=== PATIENT | female | born 2000 | race Caucasian/White ===

== ENCOUNTER 2023-03-18 11:43 | Outpatient (CLI) | payer MEDICAID, SELFPAY | END 2023-03-18 11:44 | disposition home or self-care (01) | PROVIDERS: PCP Family Medicine; Visit Provider Family Medicine | DX: R53.83 Other fatigue (principal); N92.1 Excessive and frequent menstruation with irregular cycle | CPT/HCPCS: 80053; 84443; 84703 ==

== ENCOUNTER 2023-03-23 13:10 | Outpatient (CLI) | payer MEDICAID, SELFPAY | END 2023-03-23 13:11 | disposition home or self-care (01) | LOC: NFLDREF 03-24 05:20 | PROVIDERS: PCP Family Medicine; Referring Provider Family Medicine; Visit Provider Registered Nurse | DX: Z11.3 Encounter for screening for infections with a predominantly sexual mode of transmission (principal) | CPT/HCPCS: 87491; 87591 ==

== ENCOUNTER 2024-04-24 07:58 | Emergency (ER) | payer SELFPAY ==
[2024-04-24 08:16] VITALS: BP 116/87; PULSE 89; RESP 20; TEMP 36.5; O2SAT 100; BMI 37.8
--- NOTE | 2024-04-24 08:59 | ED.BACK ---
HPI - Back Pain/Injury General Chief Complaint: Back Injury/Pain Stated Complaint: back pain/vomiting Time Seen by Provider: 04/24/24 08:20 History of Present Illness HPI Narrative: This 24-year-old female comes in complaining of diffuse low back pain that began a couple days ago. She does not report any injury event or strenuous activity to bring this on. She states that there is no pain radiating down either leg. Related Data Home Medications ?Medication ?Instructions ?Recorded ?Confirmed THC gummies PO PRN 03/18/23 03/23/23 dextroamphetamine-amphetamine 20 1 tab PO DAILY 04/24/24 04/24/24 mg tablet Previous Rx's ?Medication ?Instructions ?Recorded ondansetron 4 mg disintegrating 4 mg PO Q8H PRN nausea and 05/26/23 tablet vomiting #30 tabs cyclobenzaprine 10 mg tablet 10 mg PO TID #15 tabs 04/24/24 ketorolac 10 mg tablet 10 mg PO Q8H 5 days #15 tabs 04/24/24 Allergies Allergy/AdvReac Type Severity Reaction Status Date / Time aripiprazole (From Abilify) AdvReac worse Verified 04/24/24 08:29 depression sertraline (From Zoloft) AdvReac anger Verified 04/24/24 08:29 Review of Systems Status of ROS: Reports: 10 or more systems reviewed and unremarkable except as noted in History and below Narrative: Constitutional: No fevers, no weight gain or loss. Eyes: No discharge. No vision changes. HENT: No congestion, no sore throat, no ear pain. Cardiovascular: No chest pain, no palpitations. Respiratory: No shortness of breath, no wheezes, no cough. Gastrointestinal: No abdominal pain, no vomiting, no diarrhea. Genitourinary: No dysuria, no hematuria. Musculoskeletal: Normal range of motion. Diffuse pain across the low back. Skin: No rashes, no pruritis. Neurological: No dizziness, weakness, sensory change, speech change. Endo/Heme/Allergies: No bruising or bleeding. No polydipsia. Pysch: no suicidality, no anxiety, no insomnia. All other systems reviewed and are negative. [facility] Medical History (Updated 04/24/24 @ 09:02 by Andres Mckeon MD) Overweight ?E66.3 - Overweight (ICD-10) HSV-1 infection ?B00.9 - Herpesviral infection, unspecified (ICD-10) History of chlamydia ?Z86.19 - Personal history of other infectious and parasitic diseases (ICD-10) History of substance abuse ?F19.11 - Other psychoactive substance abuse, in remission (ICD-10) Anxiety ?F41.9 - Anxiety disorder, unspecified (ICD-10) GERD (gastroesophageal reflux disease) ?K21.9 - Gastro-esophageal reflux disease without esophagitis (ICD-10) Insomnia ?G47.00 - Insomnia, unspecified (ICD-10) History of seizure ?Z87.898 - Personal history of other specified conditions (ICD-10) Acne ?L70.9 - Acne, unspecified (ICD-10) Migraine without aura ?G43.009 - Migraine without aura, not intractable, without status migrainosus (ICD-10) History of abnormal cervical Pap smear ?Z87.42 - Personal history of other diseases of the female genital tract (ICD-10) PTSD (post-traumatic stress disorder) ?F43.10 - Post-traumatic stress disorder, unspecified (ICD-10) Depression ?F32.A - Depression, unspecified (ICD-10) Surgical History (Updated 04/20/23 @ 06:48 by Kaela Cottrell MD) Encounter for IUD insertion (03/2023) ?Z30.430 - Encounter for insertion of intrauterine contraceptive device (ICD-10) Hx of tympanostomy tubes (1998) ?Z98.890 - Other specified postprocedural states (ICD-10) History of appendectomy (2007) ?Z90.49 - Acquired absence of other specified parts of digestive tract (ICD-10) History of tonsillectomy (1999) ?Z90.89 - Acquired absence of other organs (ICD-10) Family History Mother Bipolar disorder COPD (chronic obstructive pulmonary disease) Diabetes Myocardial infarction, Onset Age: 43 Stroke, Onset Age: 45 Sister Bipolar disorder Family history of drug addiction Father CHF (congestive heart failure) COPD (chronic obstructive pulmonary disease) Diabetes Bipolar disorder Other Breast cancer Social History Narrative: , 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 Lives in [place] 10 year-old son lives with her parents in [place]. Does not smoke cigarettes never did Alcohol use is 7 shots in 1 day about once a month Does not exercise History of cocaine use resolved since 2014, history of alcohol use abuse resolved since 2014 What is your current living situation?: I presently have a place to live Problems where you live: no known problems In the past 12 months, utilities in danger of being shut off: no In past 12 months, lack of transportation kept you from medical appts, meetings, work, or getting things needed for daily living: no In the past 12 mos, have been you worried that your food would run out before you had money to buy more?: never true In the past 12 mos, the food you bought just didn't last and you didn't have money to buy more?: never true How often does anyone, including family, friends and others, physically hurt you: never How often does anyone, including family, friends and others, insult or talk down to you: never How often does anyone, including family, friends and others, threaten you with harm: never How often does anyone, including family, friends and others, scream or curse at you: never Exam Narrative: Exam Narrative: Constitutional: Well-developed, well-nourished, no acute distress. HEENT: Normocephalic, atraumatic. Neck: Normal range of motion. Nontender. Supple. Heart: Regular. No murmurs. Normal rate. Intact distal pulses. Lungs: Clear to auscultation. No chest discomfort. No wheezes, rhonchi, or rales. Abdomen: Normal bowel sounds. Nontender. No rebound tenderness. Genitalia: Deferred. Back: No midline tenderness. Normal range of motion. Diffuse pain across the low back. No radiating pain. Extremities: Normal range of motion. No injury. Skin: Intact. No rash. Warm. No erythema or pallor. Neurologic: No altered sensation. No weakness. Alert and oriented. Psychiatric: No suicidality. No anxiety or depression. No insomnia. Nursing notes and vitals signs are reviewed. Const: Vital Signs, click to edit/add: Vital Signs - 24 hr 04/24/24 08:16 Temperature 97.7 F Pulse Rate [Pulse Oximeter] 89 Respiratory Rate 20 Blood Pressure [Ri ght Upper Arm] 116/87 Pulse Oximetry 100 Oxygen Delivery Me thod Room Air Course Vital Signs Vital signs: Initial Vital Signs Temperature 97.7 F 04/24/24 08:16 Temperature Source Temporal Artery Scan 04/24/24 08:16 Pulse Rate 89 04/24/24 08:16 Respiratory Rate 20 04/24/24 08:16 Blood Pressure 116/87 04/24/24 08:16 Blood Pressure Mean 96 04/24/24 08:16 Pulse Oximetry 100 04/24/24 08:16 Oxygen Delivery Method Room Air 04/24/24 08:16 Vital Signs Temperature 97.7 F 04/24/24 08:16 Pulse Rate 89 04/24/24 08:16 Respiratory Rate 20 04/24/24 08:16 Blood Pressure 116/87 04/24/24 08:16 Pulse Oximetry 100 04/24/24 08:16 Oxygen Delivery Method Room Air 04/24/24 08:16 Temperature 97.7 F 04/24/24 08:16 Pulse Rate 89 04/24/24 08:16 Respiratory Rate 20 04/24/24 08:16 Blood Pressure 116/87 04/24/24 08:16 Pulse Oximetry 100 04/24/24 08:16 Oxygen Delivery Method Room Air 04/24/24 08:16 MDM - Back Pain/Injury MDM Narrative Medical decision making narrative: This patient comes in reporting low back pain. She states that she went to work and felt like it was too painful to continue working. She is requesting a note regarding her work. Her exam is normal and she has not had any recent strenuous activity or injury event that mandates imaging at this time. The patient received prescriptions for Toradol and Flexeril. I encouraged gentle stretching and increased activity as tolerated. Discharge Plan Discharge Clinical Impression: Strain of lumbar region Patient Disposition: Home, Self-Care Condition: Stable Additional Instructions: Take medication as needed and indicated. Gentle stretching is encouraged an increase activity as tolerated. Follow up with MD return if worsening. Prescriptions: New cyclobenzaprine 10 mg tablet 10 mg PO TID Qty: 15 0RF ketorolac 10 mg tablet 10 mg PO Q8H 5 Days Qty: 15 0RF No Action THC gummies PO PRN dextroamphetamine-amphetamine 20 mg tablet 1 tab PO DAILY ondansetron 4 mg tablet,disintegrating 4 mg PO Q8H PRN (Reason: nausea and vomiting) Qty: 30 0RF Follow Up/Referrals: Kaela Cottrell MD [Primary Care Provider] - Stand Alone Forms: [employer] Info Instructions
== END 2024-04-24 09:09 | disposition home or self-care (01) ==
LOC: ED 09:05
PROVIDERS: Emergency Provider Emergency Medicine Emergency Medical Services; PCP Family Medicine
DX: S39.012A Strain of muscle, fascia and tendon of lower back, initial encounter (principal)
CPT/HCPCS: 99283; 99284

== ENCOUNTER 2025-02-06 08:20 | Outpatient (CLI) | payer MEDICAID, SELFPAY | END 2025-02-06 08:21 | disposition home or self-care (01) | LOC: LKVREF 08:23 | PROVIDERS: PCP Family Medicine; Visit Provider Obstetrics & Gynecology | DX: N39.0 Urinary tract infection, site not specified (principal) | CPT/HCPCS: 87086 ==

== ENCOUNTER 2025-02-09 16:03 | Emergency (ER) | payer MEDICAID, SELFPAY ==
--- OUTSIDE RECORDS SUMMARY | 2024-12-26 14:43 | XMS_ITS | Encounter Summary ---
Author Organization [facility] Address [address] [place] [address] Care Team Providers Care Car Pre Cooler Name Role Phone Elsewhere, Pcp Primary Care Provider Unavailabl e Reason for Visit * Reason Comments Headache Patient presents wit h complaints of headache at work which started yesterday. She checked her blood pressure and noted it to be elevated. She also states she vomited once. She states she used to have migraine medications but I haven't gotten it filled. I probably should. She denies fevers. Encounter Details Date Type Department Care Team (Late st Contact Info) Description 12/26/2024 2:43 PM CDT - 12/26/2024 3:49 PM CDT Emergency [facility] [address] [place] [address] [phone] Michelle Esteban, SUNIL, C.N.P. [address] [place] [address] [phone] Headache Unspecified [R51.9] (Primary Dx) Discharge Disposition: Home or Self Care Social History Tobacco Use Types Packs/Day Years Used Date Smoking Tobacco: Never Smokeless Tobacco: Never Alcohol Use Standard Drinks/Week Comments Not Currently 0 (1 standard drink = 0.6 oz pur e alcohol) Rarely Comments Unknown Sex and Gender Information Value Date Recorded Sex Assigned at Not on file Legal Sex Female 6:45 PM CDT Gender Identity Not on file Sexual Orientation Not on file documented as of this encounter Last Filed Vital Signs Vital Sign Reading Time Taken Comments Blood Pressure 106/79 12/26/2024 2:03 PM CDT Pulse 80 12/26/2024 1:58 PM CDT Temperature 36.4 C (97.5 F) 12/26/2024 1:58 PM CDT Respiratory Rate 20 12/26/2024 1:58 PM CDT Oxygen Saturation 100% 12/26/2024 1:58 PM CDT Inhaled Oxygen Concentration - - Weight 110 kg (242 lb 3.2 oz) 12/26/2024 1:56 PM CDT Height 165.1 cm (5' 5) 12/26/2024 1:56 PM CDT Body Mass Index 40.3 12/26/2024 1:56 PM CDT documented in this encounter Discharge Instructions * Discharge Instructions* Michelle Esteban APRN, C.N.P. - 12/26/2024 3:20 PM CDT Rest, remain well hydrated. Low heating pad to upper shoulder/back to help relax back muscles. Which then will release upper back tension. Small frequent meals, protein sources, like cheese and peanut butter. Follow up with primary care provider at [facility] when get insurance for regular health maintenanceexams and followup of headaches. * Attachments The following attachments cannot be sent through Care Everywhere. * Chronic Migraine Headache (Latvian) documented in this encounter Medications at Time of Discharge acetaminophen (TYLENOL) 500 mg tablet Take 1,000 mg by mouth every 6 (six) hours as needed for pain. ARIPiprazole (ABILIFY) 5 mg tablet Take 2.5 mg by mouth daily. cloNIDine (CATAPRES) 0.2 mg tablet Take 0.2 mg by mouth at bedtime as needed. for sleep 11/27/2022 cyclobenzaprine (FlexeriL) 5 mg tablet Take 5 mg by mouth at bedtime as needed for muscle spasms. dextroamphetamine -amphetamine (AdderalL) 30 mg tablet Take 30 mg by mouth daily. escitalopram (Lexapro) 20 mg tablet Take 20 mg by mouth daily. ibuprofen (ADVIL,MOTRIN) 200 mg capsule Take 800 mg by mouth every 6 (six) hours as needed for pain. Lo-Zumandimine, 28, 3-0.02 mg per tablet Take 1 tablet by mouth daily. 02/27/2023 ondansetron (Zofran) 4 mg tablet Take 4 mg by mouth every 8 (eight) hours as needed for nausea or vomiting. traMADoL (Ultram) 50 mg tablet Take 1 tablet by mouth every 6 (six) hours as needed for pain. 06/14/2024 01/30/2025 documented as of this encounter Progress Notes * Michelle Esteban APRN, C.N.P. - 12/26/2024 3:36 PM CDT The patient verbally consented to an audio recording of their visit to assist with the completion of documentation. SUBJECTIVE CHIEF COMPLAINT/REASON FOR VISIT Headache (Patient presents with complaints of headache at work which started yesterday. She checkedher blood pressure and noted it to be elevated. She also states she vomited once. She states she used to have migraine medications but I haven't gotten it filled. I probably should. She denies fevers. ) HISTORY OF PRESENT ILLNESS History of Present Illness Loyda Ireland is a 24 year old female who presents with a severe migraine and associated vomiting. She is experiencing a severe migraine today, with headache pain rated as 8 out of 10, leading to vomiting after lunch. During the headache, her blood pressure was elevated at 167/112, although she does not have a history of hypertension and usually has low blood pressure. 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 She has a history of migraines and previously used Fioricet during , but discontinued it due to loss of insurance. Currently, she uses Tylenol and Excedrin Migraine, but these have been ineffective for her last two migraines, necessitating emergency room visits where she received Toradol injections, which provided relief. She has tried sumatriptan in the past without success and is not currently on any maintenance migraine medication. In addition to the headache, she reports lower right abdominal pain that started yesterday. No fever, chills, blurred or double vision, fainting, constipation, diarrhea, or pain during urination. Herlast bowel movement was the previous night, and her last menstrual period was over a month ago, with irregular cycles. She has taken a home test which was negative. 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 She recently became eligible for health insurance through her job, which she started on January 22, and has not seen her primary care provider in a while due to scheduling difficulties. REVIEW OF SYSTEMS Constitutional: Negative for chills. HENT: Negative. Gastrointestinal: Positive for vomiting (One time today.). Genitourinary: Negative. Skin: Negative. Neurological: Positive for headaches (Generalized.). Negative for syncope, speech difficulty and weakness. Psychiatric/Behavioral: Negative. OBJECTIVE Initial Vitals Temperature 12/26/24 1358 36.4 ??C Pulse Rate 12/26/24 1358 80 Heart Rate -- Resp Rate 12/26/24 1358 20 Blood Pressure 12/26/24 1403 106/79 SpO2 12/26/24 1358 100 % Pain Score 12/26/24 1358 9 PHYSICAL EXAMINATION Physical Exam VITALS: BP- 106/79 ABDOMEN: Normal bowel sounds. NEUROLOGICAL: Neurological exam normal, clear speech, well-balanced gait. Constitutional: Nursing note and vitals reviewed. She appears not lethargic. No distress. HENT: Head: Normocephalic. Mouth/Throat: Oropharynx is clear and moist. Mucous membranes are moist. Eyes: Pupils are equal, round, and reactive to light. Cardiovascular: Normal rate. Pulmonary/Chest: Breath sounds normal. Abdominal: Normal appearance and bowel sounds are normal. There is no hepatosplenomegaly. There is abdominal tenderness in the right lower quadrant. There is no rigidity, no rebound, no guarding, no CVA tenderness, no tenderness at McBurney's point, no Psoas sign and no Rovsing's sign. Musculoskeletal: Cervical back: Normal range of motion. Neurological: Alert. Skin: She is not diaphoretic. ASSESSMENT/PLAN Assessment & Plan Migraine Severe migraine with vomiting, ineffective sumatriptan, elevated blood pressure likely due to pain.Discussed need for maintenance medication. - Administer Toradol injection for acute relief. - Advise follow-up with primary care provider to discuss maintenance options. - Suggest using a low heating pad on upper shoulders to relax muscles and alleviate symptoms. Abdominal discomfort Lower right abdominal discomfort without fever, chills, or urinary symptoms. - Advise follow-up if pain persists or worsens. No signs of acute abdomen on exam. Continue cautious monitoring. Follow-up Has not seen primary care provider for months. Health insurance starting in January may facilitate access to care. - Encourage scheduling an appointment with primary care provider for ongoing management of migraines and other health concerns. Final Diagnoses: as of 12/26/24 1536 Headache Unspecified [R51.9] PRIMARY DIAGNOSIS Headache Unspecified [R51.9] Pleasant 24-year-old female presents to urgent care today with headache. With 1 episode of vomitingtoday. Patient does have a history of migraine. Without maintenance medication. Receives good results of headache with Toradol injection. Which is provided today. We did discuss the importance for routine health maintenance for ongoing concerns such as migraine headaches and stress management. Verbally agrees and understands. She has had limited resources recently and will have access to insurance in 1 month. Primary care provider is [facility] in [place]. Will follow-up with them for further evaluation and recommendations. Reviewed supportive measures. Reviewed return to care precautions. Follow-up with urgent Care primary care if symptoms fail to gradually improve, worsen or as needed for any new concerns. Verbally agrees and understands today's plan of care. No further questions or concerns prior to discharge. Discharge from urgent Care in improved blood pressure vitally stable independent ambulatory condition. Michelle Esteban APRN, C.N.P. 12/26/24 1543 documented in this encounter Plan of Treatment Not on file documented as of this encounter Visit Diagnoses Diagnosis Headache Unspecified [R51.9]- Primary documented in this encounter Administered Medications Inactive Administered Medications - up to 3 most recent administrations Medication Order MAR Action Action Date Dose Rate Site ketorolac injection 15 mg (ToradoL) 15 mg, intramuscular, Once, On Wed12/26/24 at 1509, For 1 dose, Adult IV push rate: Over 15 seconds. Peds IV push rate: Over 1 minute. Doses > 15 mg IV/IM are discouraged due to lack of additional analgesic benefit. Given 12/26/2024 3:12 PM CDT 15 mg Right Deltoid documented in this encounter Active and Recently Administered Medications Times are shown in CDT. Scheduled Medication Order 12/24/2024 12/25/2024 12/26/2024 ketorolac injection 15 mg (ToradoL) (COMPLETED) 15 mg, intramuscular, Once, On Wed12/26/24 at 1509, For 1 dose, Adult IV push rate: Over 15 seconds. Peds IV push rate: Over 1 minute. Doses > 15 mg IV/IM are discouraged due to lack of additional analgesic benefit. 1512 (Given - Provid er: Clemencia Alvarado) documented in this encounter Care Teams Car Pre Cooler Relationship Specialty Start Date End Date Elsewhere, Pcp PCP - General Internal Medicine 08/31/23 documented as of this encounter
--- OUTSIDE RECORDS SUMMARY | 2025-01-30 16:45 | XMS_ITS | Encounter Summary ---
Author Organization [facility] Address [address] [place] [address] Care Team Providers Care Telegraph Service Rater Name Role Phone Elsewhere, Pcp Primary Care [...] CDT - 01/30/2025 6:28 PM CDT Emergency [facility] [address] [place] [phone] Michelle Esteban, PROOF TESTER, C.N.P. [address] [place] [phone] Nausea And Vomiting (Primary Dx) Discharge Disposition: [...] Care Everywhere. * Nausea and Vomiting Adult Gmjp-[id number]-Ekik (Bengali) documented in this encounter Medications at Time [...] past. 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 ED Course as of 01/30/25 1806 Tue Jan 30, 2025 1707 Microscopic Manual: [...] evaluation. If menses is delayed follow-up with [facility] for further considerations. Reviewed strict return to [...] URINE ORDERABLES Final Result Performing Organization Address City/[facility]/ZIP Co de Phone Number [facility] [address] [place] [address], [address] [address] * Test, POCT, Urine (Lab) (01/30/2025 4:25 PM CDT) Test, POCT, U Negative 01/30/2025 4:55 PM CDT NPRG Urine (Urine, Midstream) 01/30/2025 4:25 PM CDT 01/30/2025 4:39 PM CDT us Michelle Esteban APRN, C.N.P. LAB POCT ORDERABLES - DEVICE Final Result Performing Organization Address [facility]/[place] Co de Phone Number [facility] [address] [place] [phone], [address] [address] * Bacterial Culture, Aerobic + Susceptibility, Urine (01/30/2025 4:25 PM CDT) Urine Culture Urogenital microbiota, susceptibilities not performed per laboratory criteria. 02/01/2025 8:01 AM CDT MKTO Urine (Urine, Midstream) 01/30/2025 4:25 PM CDT 01/31/2025 12:50 AM CDT Comment:Specimen Source Site : Urine us Michelle Esteban APRN, C.N.P. LAB MICROBIOLOGY - G ENERAL ORDERABLES Final Result [facility] [address] [place] [address], [place] MKTO [facility] [place] [address] [place] [address] * (ABNORMAL) Urinalysis with Microscopic if Indicated: [...] 8.0 01/30/2025 4:54 PM CDT NPRG Specific [place] 1.010 1.001 - 1.035 01/30/2025 4:54 PM CDT NPRG Urobilinogen 0.2 0.2 - 1.0 mg/dL 01/30/2025 4:54 PM CDT NPRG Urine (Urine, Midstream) 01/30/2025 4:25 PM CDT 01/30/2025 4:39 PM CDT us Michelle Esteban APRN, C.N.P. LAB URINE ORDERABLES Final Result [facility] [address] [place] [address], [facility] NPRG [facility] [address] documented in this encounter Visit Diagnoses Diagnosis [...] obtained. documented in this encounter Care Teams Telegraph Service Rater Relationship Specialty Start Date End Date Elsewhere, Pcp PCP - General Internal Medicine 08/31/23 documented as of this encounter
--- OUTSIDE RECORDS SUMMARY | 2025-02-05 18:20 | XMS_ITS | Encounter Summary ---
Author Organization [facility] Address [address] [place] [address] Care Team Providers Care Helminthology Teacher Name Role Phone Elsewhere, Pcp Primary Care [...] Care Team (Late st Contact Info) Description 02/05/2025 6:20 PM CDT - 02/05/2025 8:42 PM CDT Emergency [place] [facility] Department [address] [place] [address] [phone] Michelle Esteban, SUNIL, C.N.P. [address] [place] [address] [phone] Dysuria (Primary Dx) Discharge Disposition: Home or [...] be sent through Care Everywhere. * Dysuria (American) documented in this encounter Medications at Time [...] four weeks and was seen by a relay record clerk in [place] three days ago to confirm her . [...] Negative pH 7.0 5.0 - 8.0 Specific [place] 1.010 1.001 - 1.035 Urobilinogen 0.2 0.2 [...] within normal limits. - Advise follow-up with relay record clerk if symptoms worsen or new concerns arise. [...] advanced imaging. Follow-up with nurse midwives in [place] for further evaluation andrecommendations. Unclear what is causing this fullness. Continue cautious monitoring. Could be initial signs of versus bacteria with urine culture pending. Or another cause. Referred to nurse relay record clerk for further evaluation and recommendations. Agrees. Reviewed [...] CDT 02/05/2025 7:01 PM CDT us Michelle sEteban APRN, C.N.P. LAB POCT ORDERABLES - DEVICE Final Result [facility] [address] [place] [address], [facility] NPRG [facility] [address] [place] [address] * (ABNORMAL) Microscopic Manual (02/05/2025 5:55 PM [...] APRN, C.N.P. LAB URINE ORDERABLES Final Result [facility] [address] [place] [address], [facility] NPRG [facility] [place] [address] [place] [address] * Bacterial Culture, Aerobic + Susceptibility, Urine (02/05/2025 5:55 PM CDT) Pathologist [facility] Urine Culture Urogenital microbiota, susceptibilities not performed per laboratory criteria. 02/06/2025 3:55 PM CDT MKTO Urine (Urine, Midstream) 02/05/2025 5:55 PM CDT 02/05/2025 9:59 PM CDT Comment:Specimen Source Site : Urine Michelle Esteban APRN, C.N.P. LAB MICROBIOLOGY - G ENERAL ORDERABLES Final Result [facility] [address] [place] [address], [place] MKTO [facility] [place] [address] [place] [address] * (ABNORMAL) Urinalysis with Microscopic if Indicated: [...] 8.0 02/05/2025 6:05 PM CDT NPRG Specific [place] 1.010 1.001 - 1.035 02/05/2025 6:05 PM CDT NPRG Urobilinogen 0.2 0.2 - 1.0 mg/dL 02/05/2025 6:05 PM CDT NPRG Urine (Urine, Midstream) 02/05/2025 5:55 PM CDT 02/05/2025 6:02 PM CDT us Michelle Esteban APRN, C.N.P. LAB URINE ORDERABLES Final Result [facility] [address] [place] [address], [facility] NPRG [facility] [address] [place] [address] documented in this encounter Visit Diagnoses Diagnosis Dysuria- Primary documented in this encounter Care Teams Helminthology Teacher Relationship Specialty Start Date End Date Elsewhere, Pcp PCP - General Internal Medicine 08/31/23 documented as of this encounter
--- OUTSIDE RECORDS SUMMARY | 2025-02-09 16:05 | XMS_ITS | Clinical Summary ---
Author Organization [facility] Address [address] [place] [address] Care Team Providers Care Elementary Spanish Teacher Name Role Phone Pcp, No Primary Care Provider Unavailabl e Allergies No known active allergies Medications dextroamphetamin e-amphetamine (ADDERALL XR) 30 mg Extended-Release capsule Take 30 mg by mouth. Daily prn 4 Active levonorgestrel (Mirena) 21 mcg/24 hours (8 yrs) 52 mg intrauterine device (IUD) Inject 1 Device intrauterine one time. Active Social History Tobacco Use Types Packs/Day Years Used Date Smoking Tobacco: Never Smokeless Tobacco: Never Tobacco Cessation:Counseling Given: No Alcohol Use Standard Drinks/Week Comments Not Currently 0 (1 standard drink = 0.6 oz pur e alcohol) Interpersonal Safety Answer Date Record ed Are you being hit, kicked, p ushed or yelled at (see row info)? No 05/18/2024 Interpersonal Safety Abuse 12 - 18 Not on file 05/18/2024 Interpersonal Safety Ambulatory Vulnerability No t on file 05/18/2024 Comments No Sex and Gender Information Value Date Recorded Sex Assigned at Not on file Legal Sex Female 8:25 AM CDT Gender Identity Not on file Sexual Orientation Not on file Obstetrics History Para Term AB IAB SAB Ectopic Multiple Livin g Live Births 1 Date Outcome GA Total Labor Labor/2nd/3rd Weight Sex Type Anes PTL Adilene A1 A5 Name Clin Last Filed Vital Signs Vital Sign Reading Time Taken Comments Blood Pressure 123/82 05/18/2024 9:04 AM GEOPHYSICAL ENGINEER Pulse 80 05/18/2024 9:04 AM GEOPHYSICAL ENGINEER Temperature 37 C (98.6 F) 05/18/2024 9:12 AM GEOPHYSICAL ENGINEER Respiratory Rate 16 05/18/2024 9:04 AM GEOPHYSICAL ENGINEER Oxygen Saturation 97% 05/18/2024 9:04 AM GEOPHYSICAL ENGINEER Inhaled Oxygen Concentration - - Weight 108.4 kg (239 lb) 05/18/2024 9:04 AM GEOPHYSICAL ENGINEER Height 165.1 cm (5' 5) 05/18/2024 9:04 AM GEOPHYSICAL ENGINEER Body Mass Index 39.77 05/18/2024 9:04 AM GEOPHYSICAL ENGINEER Plan of Treatment Not on file Care Teams Elementary Spanish Teacher Relationship Specialty Start Date End Date Pcp, No . PCP - General 01/26/20
--- OUTSIDE RECORDS SUMMARY | 2025-02-09 16:06 | XMS_ITS | Encounter Summary ---
Author Organization [facility] Address [address] [place] [address] Care Team Providers Care Courtroom Deputy Or Calendar Clerk Name Role Phone Elsewhere, Pcp Primary Care Provider Unavailabl e Encounter Details Date Type Department Care Team (Late st Contact Info) Description 02/01/2025 Results Follow-Up Urgent Care in [place], [place] [address] [place] [phone] Urbano Torrez, P.A.-Reji., P.A. [address] [place] [phone] Bacterial Culture, Aerobic + Susceptibility, Urine Social History Tobacco Use Types Packs/Day Years [...] on file documented as of this encounter Plan of Treatment Not on file documented as of this encounter Visit Diagnoses Not on filedocumented in this encounter Care Teams Courtroom Deputy Or Calendar Clerk Relationship Specialty Start Date End Date Elsewhere, Pcp PCP - General Internal Medicine 08/31/23 documented as of this encounter
--- OUTSIDE RECORDS SUMMARY | 2025-02-09 16:06 | XMS_ITS | Encounter Summary ---
Author Organization [facility] Address [address] [place] [address] Care Team Providers Care Past Due Accounts Clerk Name Role Phone Elsewhere, Pcp Primary Care Provider Unavailabl e Encounter Details Date Type Department Care Team (Late st Contact Info) Description 02/06/2025 Results Follow-Up [place] [facility] [address] [place] [phone] Dominga Chau P.A.-C., P.A. [address] [place] [address] [phone] Bacterial Culture, Aerobic + Susceptibility, Urine Social [...] on filedocumented in this encounter Care Teams Past Due Accounts Clerk Relationship Specialty Start Date End Date Elsewhere, Pcp PCP - General Internal Medicine 08/31/23 documented as of this encounter
--- OUTSIDE RECORDS SUMMARY | 2025-02-09 16:06 | XMS_ITS | Clinical Summary ---
Author Organization [facility] Address [address] [place] [address] Care Team Providers Care Blind Lacer Name Role Phone Elsewhere, Pcp Primary Care Provider Unavailabl e Source Comments Patient records contain information from all sites at [facility]. For routine questions regarding patient records, call [phone] during business hours, M-F 8:00 AM - 5:00 PM Central Time. Record requests for emergency care only can be directed to [phone] at any time.[facility] Allergies No known active allergies Medications acetaminophen (TYLENOL) 500 mg tablet Take 1,000 mg by mouth every 6 (six) hours as needed for pain. Active ibuprofen (ADVIL,MOTRIN) 200 mg capsule Take 800 mg by mouth every 6 (six) hours as needed for pain. Active cloNIDine (CATAPRES) 0.2 mg tablet Take 0.2 mg by mouth at bedtime as needed. for sleep 023 Active ARIPiprazole (ABILIFY) 5 mg tablet Take 2.5 mg by mouth daily. Active Lo-Zumandimine, 28, 3-0.02 mg per tablet Take 1 tablet by mouth daily. 023 Active dextroamphetamine -amphetamine (AdderalL) 30 mg tablet Take 30 mg by mouth daily. Active escitalopram (Lexapro) 20 mg tablet Take 20 mg by mouth daily. Active cyclobenzaprine (FlexeriL) 5 mg tablet Take 5 mg by mouth at bedtime as needed for muscle spasms. Active ondansetron (Zofran) 4 mg tablet Take 4 mg by mouth every 8 (eight) hours as needed for nausea or vomiting. Active butalbital-acetam inophen-caff (Esgic) 50-325-40 mg per tablet Take 1 tablet by mouth 2 (two) times a day. Active levonorgestreL (Mirena) 21 mcg/24hr (up to 8 yrs) 52 mg IUD 1 Device by intrauterine route. Active ondansetron ODT (Zofran-ODT) 4 mg disintegrating tablet Dissolve 1 tablet (4 mg total) in the mouth every 8 (eight) hours as needed for nausea or vomiting for up to 10 days. 20 tablet 2024 Active traMADoL (Ultram) 50 mg tablet Take 1 tablet by mouth every 6 (six) hours as needed for pain. 2024 Discontinued(T herapy completed) ondansetron ODT (Zofran-ODT) 4 mg disintegrating tablet Dissolve 1 tablet (4 mg total) in the mouth every 8 (eight) hours as needed for nausea or vomiting for up to 10 days. 20 tablet 2024 Discontinued Active Problems Comments Yes No known active problems Encounters Date Type Department Care Team Description 02/06/2025 Results Follow-Up [facility] [address] [place] [phone] Dominga Chau P.A.-C., P.A. Bacterial Culture, Aerobic + Susceptibility, Urine 02/05/2025 6:20 PM CDT - 02/05/2025 8:42 PM CDT Emergency [facility] [address] [place] [address] Michelle Esteban, SUNIL, C.N.P. Dysuria (Primary Dx) Discharge Disposition: Home or Self Care 02/01/2025 Results Follow-Up Urgent Care in [place], [place] [address] [place] [id number] Urbano Torrez P.A.-C., P.A. Bacterial Culture, Aerobic + Susceptibility, Urine 01/30/2025 4:45 PM CDT - 01/30/2025 6:28 PM CDT Emergency [facility] [address] [place] [address], [place] [address] Michelle Esteban APRN C.N.P. Nausea And Vomiting (Primary Dx) Discharge Disposition: Home or Self Care 12/26/2024 2:43 PM CDT - 12/26/2024 3:49 PM CDT Emergency [facility] [address] [place] [address], [place] [address] Michelle Esteban APRN C.N.P. Headache Unspecified [R51.9] (Primary Dx) Discharge Disposition: Home or Self Care 12/15/2024 9:35 PM CDT - 12/15/2024 10:51 PM CDT Emergency [facility] [address] [place] [address], [place] [address] Sahra Jacobsen M.D., M.B.A. Depression Situational (Primary Dx); Headache Unspecified Discharge Disposition: Home or Self Care from Last 3 Months Social History Tobacco Use Types Packs/Day Years Used Date Smoking Tobacco: Never Smokeless Tobacco: Never Tobacco Cessation:Counseling Given: Not Answered Alcohol Use Standard Drinks/Week Comments Not Currently 0 (1 standard drink = 0.6 oz pur e alcohol) Rarely Comments Yes Sex and Gender Information Value Date Recorded Sex Assigned at Not on file Legal Sex Female 6:45 PM CDT Gender Identity Not on file Sexual Orientation Not on file Last Filed Vital Signs Vital Sign Reading Time Taken Comments Blood Pressure 134/89 02/05/2025 5:47 PM CDT Pulse 106 02/05/2025 5:47 PM CDT Temperature 37 C (98.6 F) 02/05/2025 5:47 PM CDT Respiratory Rate 16 02/05/2025 5:47 PM CDT Oxygen Saturation 99% 02/05/2025 5:47 PM CDT Inhaled Oxygen Concentration - - Weight 111 kg (245 lb 9.6 oz) 02/05/2025 5:51 PM CDT Height 165.1 cm (5' 5) 01/30/2025 4:16 PM CDT Body Mass Index 40.87 01/30/2025 4:16 PM CDT Plan of Treatment Health Maintenance Due Date Last Done Comments Cervical/Vaginal Cancer Screening 1998 HIV Screening 1998 Hepatitis C Screening 1998 HPV Vaccines (1 - 3-dose series) 2013 Depression Screening (Annual PHQ-2) 04/19/2024 COVID-19 Vaccine (2 - season) 2024 07/13/2023 Influenza Vaccine (#1) 2024 07/13/2023, 2002 Glucose Test for Med Monitoring 05/18/2025 05/18/2024, 08/31/2023, 11/01/2022, Additional history exists DTaP,Tdap,and Td Vaccines (7 - Td or Tdap) 11/28/2027 11/27/2017, 12/15/2015, 07/23/1999, Additional history exists RSV vaccine - (32-36 weeks) or 50+ years (1 - 1-dose 75+ series) 2073 Hepatitis B Vaccines Completed 1998, 1998, 1998 IPV Vaccines Completed 07/23/1999, 06/1999, 1998, Additional history exists Pneumococcal vaccine (0-49 years) Aged Out No longer eligible based on patient's age to complete this topic Procedures Procedure Name Priority Date/Time Associated Diagnosis Comments TEST, POCT, U (LAB) STAT 02/05/2025 5:55 PM CDT Dysuria HC URINALYSIS AUTO W MICRO STAT 02/05/2025 5:55 PM CDT URINALYSIS WITH MICROSCOPIC IF INDICATED, U STAT 02/05/2025 5:55 PM CDT BACTERIAL CULTURE, AEROBIC + SUSC, URINE STAT 02/05/2025 5:55 PM CDT HC URINALYSIS AUTO W MICRO STAT 01/30/2025 4:25 PM CDT TEST, POCT, U (LAB) STAT 01/30/2025 4:25 PM CDT URINALYSIS WITH MICROSCOPIC IF INDICATED, U STAT 01/30/2025 4:25 PM CDT BACTERIAL CULTURE, AEROBIC + SUSC, URINE STAT 01/30/2025 4:25 PM CDT COMPREHENSIVE METABOLIC PANEL, S/P STAT 08/31/2023 7:24 AM CDT from Last 3 Months or Most Recently Relevant to Health Maintenance Results * (ABNORMAL) Urinalysis with Microscopic if Indicated: Urine, Midstream (02/05/2025 5:55 PM CDT) Only the most recent of2 resultswithin the time period is included. Source Urine, Urine, Midstream 02/05/2025 6:02 PM [...] 8.0 02/05/2025 6:05 PM CDT NPRG Specific [place] 1.010 1.001 - 1.035 02/05/2025 6:05 PM CDT NPRG Urobilinogen 0.2 0.2 - 1.0 mg/dL 02/05/2025 6:05 PM CDT NPRG Urine (Urine, Midstream) 02/05/2025 5:55 PM CDT 02/05/2025 6:02 PM CDT us Michelle Esteban APRN, C.N.P. LAB URINE ORDERABLES Final Result Performing Organization Address [facility] Co de Phone Number [facility] [address] [place] [address], [facility] NPRG [place] [address] [place] [address] * (ABNORMAL) Microscopic Manual (02/05/2025 5:55 PM CDT) Only the most recent of2 resultswithin the time period is included. White Blood Cells 4-10 /hpf 02/05/2025 6:12 [...] Organization Address City/[facility] Co de Phone Number [facility] [address] [place] [address], [facility] NPRG [place] [address] [place] [address] * Bacterial Culture, Aerobic + Susceptibility, Urine (02/05/2025 5:55 PM CDT) Only the most recent of2 resultswithin the time period is included. Urine Culture Urogenital microbiota, susceptibilities not performed per laboratory criteria. 02/06/2025 3:55 PM CDT MKTO Urine (Urine, Midstream) 02/05/2025 5:55 PM CDT 02/05/2025 9:59 PM CDT Comment:Specimen Source Site : Urine us Michelle Esteban APRN, C.N.P. LAB MICROBIOLOGY - G ENERAL ORDERABLES Final Result Performing Organization Address City/[facility]/ZIP Co de Phone Number [facility] [address] [place] [address], [facility] MKTO [facility] [place] [address] [place] [address] * (ABNORMAL) Test, POCT, Urine (Lab) (02/05/2025 5:55 PM CDT) Only the most recent of2 resultswithin the time period is included. Test, POCT, U Positive(A ) 02/05/2025 7:09 PM CDT NPRG Urine (Urine, Midstream) 02/05/2025 5:55 PM CDT 02/05/2025 7:01 PM CDT us Michelle Esteban APRN, C.N.P. LAB POCT ORDERABLES - DEVICE Final Result Performing Organization Address City/[facility]/ZIP Co de Phone Number [facility] [address] [place] [address], [facility] NPRG [place] [address] [place] [address] * Comprehensive Metabolic Panel (08/31/2023 7:24 AM CDT) Potassium, P 4.2 3.6 - 5.2 mmol/L 08/31/2023 7:55 AM CDT NPRG Sodium, P 139 135 - 145 mmol/L 08/31/2023 7:55 AM CDT NPRG Chloride, P 105 98 - 107 mmol/L 08/31/2023 7:55 AM CDT NPRG Bicarbonate, P 26 22 - 29 mmol/L 08/31/2023 7:56 AM CDT NPRG Anion Gap, P 8 7 - 15 08/31/2023 7:55 AM CDT NPRG BUN (Blood Urea Nitrogen), P 10 6 - 21 mg/dL 08/31/2023 7:56 AM CDT NPRG Creatinine 0.86 0.59 - 1.04 mg/dL 08/31/2023 7:56 AM CDT NPRG Estimated GFR (eGFR) >90 >=60 mL/min/BS A 08/31/2023 7:56 AM CDT NPRG Comment: Estimated GFR calculated using the 2020 CKD_EPI creatinine equation. Calcium, Total, P 9.1 8.6 - 10.0 mg/dL 08/31/2023 7:56 AM CDT NPRG Glucose, P 100 70 - 140 mg/dL 08/31/2023 7:56 AM CDT NPRG Protein, Total, P 6.6 6.3 - 7.9 g/dL 08/31/2023 7:56 AM CDT NPRG Albumin, P 3.9 3.5 - 5.0 g/dL 08/31/2023 7:56 AM CDT NPRG Aspartate Aminotransferase (AST), P 13 8 - 43 U/L 08/31/2023 7:56 AM CDT NPRG Alkaline Phosphatase, P 66 35 - 104 U/L 08/31/2023 7:56 AM CDT NPRG Alanine Aminotransferase (ALT), P 13 7 - 45 U/L 08/31/2023 7:56 AM CDT NPRG Bilirubin, Total, P 0.3 0.0 - 1.2 mg/dL 08/31/2023 7:56 AM CDT NPRG Blood (Blood, Venous) 08/31/2023 7:24 AM CDT 08/31/2023 7:26 AM CDT us Keyon Juarez M.D. LAB BLOOD ADD-ON Final Resul t [facility] [address] [place] [address], [facility] NPRG [facility] [address] [place] [address] from Last 3 Months or Most Recently Relevant to Health Maintenance Insurance [place] Care Teams Blind Lacer Relationship Specialty Start Date End Date Elsewhere, Pcp PCP - General Internal Medicine 08/31/23
[2025-02-09 16:16] VITALS: BP 130/86; PULSE 97; RESP 20; TEMP 36.4; O2SAT 99; BMI 40.3
--- NOTE | 2025-02-09 16:54 | ED_ITS ---
HPI - General Adult General Date Seen: 02/09/25 Chief complaint: Abdominal Pain Stated complaint: 6 weeks , lower abdominal pain Time Seen by Provider: 02/09/25 16:48 History of Present Illness HPI narrative: Patient is a 24-year-old young woman who states that she is , with an LMP of January 04. She told the nurses she had had 2-3 days of cramping, but she was seen in urgent care 6 days ago for these symptoms so it has at least been going on that long. She says that they did not ?do anything, although she does tell me that they checked a urinalysis and it was normal. She has not had care yet so she was advised to come to the ER. She has not had any bleeding. She denies any urinary symptoms. She has not had fevers, no vomiting. No trauma. She has a history of miscarriage and is worried for that reason. Related Data Home Medications ?Medication ?Instructions ?Recorded ?Confirmed No Known Home Medications 02/09/2501/18 Allergies Allergy/AdvReac Type Severity Reaction Status Date / Time aripiprazole (From Abilify) AdvReac worse Verified 04/24/24 08:29 depression sertraline (From Zoloft) AdvReac anger Verified 04/24/24 08:29 Review of Systems Status of ROS: Reports: 6 or more systems reviewed and unremarkable except as noted in History and below [facility] Medical History Overweight ?E66.3 - Overweight (ICD-10) HSV-1 infection ?B00.9 - Herpesviral infection, unspecified (ICD-10) History of chlamydia ?Z86.19 - Personal history of other infectious and parasitic diseases (ICD- 10) History of substance abuse ?F19.11 - Other psychoactive substance abuse, in remission (ICD-10) Anxiety ?F41.9 - Anxiety disorder, unspecified (ICD-10) GERD (gastroesophageal reflux disease) ?K21.9 - Gastro-esophageal reflux disease without esophagitis (ICD-10) Insomnia ?G47.00 - Insomnia, unspecified (ICD-10) History of seizure ?Z87.898 - Personal history of other specified conditions (ICD-10) Acne ?L70.9 - Acne, unspecified (ICD-10) Migraine without aura ?G43.009 - Migraine without aura, not intractable, without status migrainosus (ICD-10) History of abnormal cervical Pap smear ?Z87.42 - Personal history of other diseases of the female genital tract (ICD-10) PTSD (post-traumatic stress disorder) ?F43.10 - Post-traumatic stress disorder, unspecified (ICD-10) Depression ?F32.A - Depression, unspecified (ICD-10) Surgical History Encounter for IUD insertion (03/2023) ?Z30.430 - Encounter for insertion of intrauterine contraceptive device (ICD- 10) Hx of tympanostomy tubes (1998) ?Z98.890 - Other specified postprocedural states (ICD-10) History of appendectomy (2007) ?Z90.49 - Acquired absence of other specified parts of digestive tract (ICD- 10) History of tonsillectomy (1999) ?Z90.89 - Acquired absence of other organs (ICD-10) Family History Mother Bipolar disorder COPD (chronic obstructive pulmonary disease) Diabetes Myocardial infarction, Onset Age: 43 Stroke, Onset Age: 45 Sister Bipolar disorder Family history of drug addiction Father CHF (congestive heart failure) COPD (chronic obstructive pulmonary disease) Diabetes Bipolar disorder Other Breast cancer Social History Narrative: , 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 Lives in [place] 10 year-old son lives with her parents in [place]. Does not smoke cigarettes never did Alcohol use is 7 shots in 1 day about once a month Does not exercise History of cocaine use resolved since 2014, history of alcohol use abuse resolved since 2014 What is your current living situation?: I presently have a place to live Problems where you live: no known problems In the past 12 months, utilities in danger of being shut off: no In past 12 months, lack of transportation kept you from medical appts, meetings, work, or getting things needed for daily living: no In the past 12 mos, have been you worried that your food would run out before you had money to buy more?: never true In the past 12 mos, the food you bought just didn't last and you didn't have money to buy more?: never true How often does anyone, including family, friends and others, physically hurt you : never How often does anyone, including family, friends and others, insult or talk down to you: never How often does anyone, including family, friends and others, threaten you with harm: never How often does anyone, including family, friends and others, scream or curse at you: never Exam Narrative: Exam Narrative: Vital signs reviewed In general, alert, nontoxic young woman. She looks comfortable. Head: Normocephalic, atraumatic. Eyes: Sclera clear. Pupils equal and reactive. ENT: Mucous membranes moist. Abdomen: Soft, nontender to palpation. Extremities: Well perfused, pulses intact. No significant edema. Skin: Warm, dry well perfused. Affect: Normal. Const: Vital Signs, click to edit/add: Vital Signs - 24 hr 02/09/25 16:16 Temperature 97.6 F Pulse Rate [Pulse Oximeter] 97 Respiratory Rate 20 Blood Pressure [Ri ght Upper Arm] 130/86 Pulse Oximetry 99 Oxygen Delivery Me thod Room Air Course Course ED Course: Patient presents with early , cramping without bleeding. I checked an HCG which is within the expected range at mid 3000. She had an ultrasound, this shows a gestational sac consistent with 5 weeks. She feels much relieved by this. At this time I do not have anything to suggest that this represents a more cute surgical or concerning process such as appendicitis, ovarian cyst, torsion, ectopic , her visit today is prompted primarily by concerned about the viability of the . I think it is reasonable to let her go home, discussed reasons to return, OB follow-up. Vital Signs Vital signs: Initial Vital Signs Temperature 97.6 F 02/09/25 16:16 Temperature Source Temporal Artery Scan 02/09/25 16:16 Pulse Rate 97 02/09/25 16:16 Respiratory Rate 20 02/09/25 16:16 Blood Pressure 130/86 02/09/25 16:16 Blood Pressure Mean 100 02/09/25 16:16 Blood Pressure Position Sitting 02/09/25 16:16 Pulse Oximetry 99 02/09/25 16:16 Oxygen Delivery Method Room Air 02/09/25 16:16 Vital Signs Temperature 97.6 F 02/09/25 16:16 Pulse Rate 97 02/09/25 16:16 Respiratory Rate 20 02/09/25 16:16 Blood Pressure 130/86 02/09/25 16:16 Pulse Oximetry 99 02/09/25 16:16 Oxygen Delivery Method Room Air 02/09/25 16:16 Temperature 97.6 F 02/09/25 16:16 Pulse Rate 97 02/09/25 16:16 Respiratory Rate 20 02/09/25 16:16 Blood Pressure 130/86 02/09/25 16:16 Pulse Oximetry 99 02/09/25 16:16 Oxygen Delivery Method Room Air 02/09/25 16:16 Medical Decision Making Lab Data Labs: Lab Results 02/09/25 Range/Units 17:03 HCG, Quant 3897.40 mIU/mL Imaging Data Pelvic ultrasound: Attestation: I have reviewed the pertinent imaging results. Radiologist's impression: Patient: Loyda Ireland MR#: [id number] : 2000 Acct:[id number] Loc: ED Service Date: 02/09/[address]: Ordering Physician: Salima Brown M.D. Date of Service: 02/09/25 Procedure(s): US OB transvaginal Accession Number(s): [id number] cc: Salima Brown M.D.; Provider,Not a Local~ For Patients: As a result of the Cures Act, medical imaging exams and procedure reports are released immediately into your electronic medical record. You may view this report before your referring provider. If you have questions, please contact your health care provider. INDICATION: Cramping COMPARISON: None TECHNIQUE: Grayscale and color transvaginal ultrasound of the uterus and both ovaries. FINDINGS: Last menstrual period: 12/25/2024 Estimated gestational age: 5 weeks 1 day FIRST TRIMESTER There is an intrauterine gestational sac that measures 7 x 5 x 8 mm for a mean sac diameter of 7 mm. This corresponds to a gestational age of 5 weeks 3 days. No yolk sac seen. No embryo seen. No perigestational hemorrhage. MATERNAL The right ovary measures 3.5 x 2.3 x 2.2 cm. There is a 1.4 x 1.3 x 1.5 cm corpus luteum cyst. There is a 1.7 x 1.0 x 1.8 cm simple cyst. The left ovary measures 2.1 x 1.9 x 2.2 cm. No left ovarian cyst or mass. Normal bilateral ovarian color Doppler flow. No pelvic free fluid. IMPRESSION: There is a single intrauterine gestational sac with an estimated gestational age of 5 weeks 3 days. No yolk sac. No embryo. Probably due to early . Continued obstetric follow-up is recommended. Dictated by Sally Orta MD @ 02/09/2025 6:25:19 PM Discharge Plan Discharge Clinical Impression: Abdominal pain during Patient Disposition: Home, Self-Care Condition: Stable Instructions: Abdominal Pain in (ED) Additional Instructions: Your test today are reassuring. Your ultrasound shows a developing in the uterus, consistent with your dates, and your beta hCG is also consistent. If pain is worsening significantly or you have new symptoms such as fever or vomiting, return for re-evaluation. Otherwise, follow up with Ob for routine care. Prescriptions: No Action No Known Home Medications Follow Up/Referrals: Kaela Cottrell MD [Staff Physician, Family Practice] Stand Alone Forms: AudioSnaps Info Instructions
== END 2025-02-09 18:16 | disposition home or self-care (01) ==
PROVIDERS: Emergency Provider Emergency Medicine
DX: O26.891 Other specified pregnancy related conditions, first trimester (principal); R10.9 Unspecified abdominal pain
CPT/HCPCS: 36415; 76817; 84702; 99283; 99284

== ENCOUNTER 2025-03-02 06:53 | Emergency (ER) | payer BC, SELFPAY ==
--- OUTSIDE RECORDS SUMMARY | 2025-01-30 15:45 | XMS_ITS | Encounter Summary ---
Author Organization [facility] Address [address] [place] [address] Care Team Providers Care Legal Records Manager Name Role Phone Elsewhere, Pcp Primary Care Provider Unavailabl e Reason for Visit * Reason Comments Vomiting Pt presents with brijesh sea and vomiting that began at 0700. Pt states she has been urinating a lot. Pt is also concerned that she could be . LMP was 12/30/2024. Pt did have trouble with nausea and vomiting when she was in the past. Pt has lower abdominal cramps. No diarrhea. No exposure to others with illness. No fevers, chills or rigors. Encounter Details Date Type Department Care Team (Late st Contact Info) Description 01/30/2025 4:45 PM CDT - 01/30/2025 6:28 PM CDT [facility] [address] [place] [phone] Michelle Esteban, DRAPERY COUNSELOR, C.N.P. [address] [place] [phone] Nausea And Vomiting (Primary Dx) Discharge Disposition: Home or Self [...] Sign Reading Time Taken Comments Blood Pressure 122/93 01/30/2025 4:22 PM CDT Pulse 78 01/30/2025 4:22 PM CDT Temperature 36.5 C (97.7 F) 01/30/2025 4:20 PM CDT Respiratory Rate 18 01/30/2025 4:22 PM CDT Oxygen Saturation - - Inhaled Oxygen Concentration - - Weight 111 kg (244 lb) 01/30/2025 4:16 PM CDT Height 165.1 cm (5' 5) 01/30/2025 4:16 PM CDT Body Mass Index 40.6 01/30/2025 4:16 PM CDT documented in this encounter Discharge Instructions * Discharge Instructions* Michelle Esteban APRN, C.N.P. - 01/30/2025 5:11 PM CDT Continue cautious monitoring. Concentrate on adequate hydration. Fluids, ice chips, gradually advance diet as tolerates. Follow up if not gradually improving as would expect. To the emergency department with any chest pain, abdominal pain or any other emergent concern. * Attachments The following attachments cannot be sent through Care Everywhere. * Nausea and Vomiting Adult [id number] (Croatian) documented in this encounter Medications at Time of Discharge acetaminophen (TYLENOL) 500 mg tablet Take 1,000 mg by mouth every 6 (six) hours as needed for pain. ARIPiprazole (ABILIFY) 5 mg tablet Take 2.5 mg by mouth daily. butalbital-acetamin ophen-caff (Esgic) 50-325-40 mg per tablet Take 1 tablet by mouth 2 (two) times a day. 5 cloNIDine (CATAPRES) 0.2 mg tablet Take 0.2 mg by mouth at bedtime as needed. for sleep 3 cyclobenzaprine (FlexeriL) 5 mg tablet Take 5 mg by mouth at bedtime as needed for muscle spasms. dextroamphetamine-a mphetamine (AdderalL) 30 mg tablet Take 30 mg by mouth daily. escitalopram (Lexapro) 20 mg tablet Take 20 mg by mouth daily. ibuprofen (ADVIL,MOTRIN) 200 mg capsule Take 800 mg by mouth every 6 (six) hours as needed for pain. levonorgestreL (Mirena) 21 mcg/24hr (up to 8 yrs) 52 mg IUD 1 Device by intrauterine route. Lo-Zumandimine, 28, 3-0.02 mg per tablet Take 1 tablet by mouth daily. 3 ondansetron (Zofran) 4 mg tablet Take 4 mg by mouth every 8 (eight) hours as needed for nausea or vomiting. ondansetron ODT (Zofran-ODT) 4 mg disintegrating tablet Dissolve 1 tablet (4 mg total) in the mouth every 8 (eight) hours as needed for nausea or vomiting for up to 10 days. 20 tablet 5 02/10/20 25 documented as of this encounter Progress Notes * Michelle Esteban, SUNIL, C.N.P. - 01/30/2025 6:09 PM CDT The patient verbally consented to an audio recording of their visit to assist with the completion of documentation. SUBJECTIVE CHIEF COMPLAINT/REASON FOR VISIT Vomiting (Pt presents with nausea and vomiting that began at 0700. Pt states she has been urinatinga lot. Pt is also concerned that she could be . LMP was 12/30/2024. Pt did have trouble with nausea and vomiting when she was in the past. Pt has lower abdominal cramps. No diarrhea. No exposure to others with illness. No fevers, chills or rigors. ) HISTORY OF PRESENT ILLNESS History of Present Illness Loyda Ireland is a 24 year old female who presents with nausea, vomiting, and lower abdominal cramping. Nausea began yesterday and persisted throughout the day without vomiting. This morning, she startedvomiting and has been unable to retain any fluids, only drinking water. She is urinating frequentlyand is concerned about a possible due to these symptoms. Also concerned about a possible urinary tract infection. She experiences lower abdominal cramping described as a burning sensation. No diarrhea, fever, or night sweats. No unusual vaginal discharge or odor reported. She has not consumed any suspicious food. Her last menstrual period was on December 31. She is not using any contraception nor trying to conceive. She has a history of pregnancies that did not show up on urine tests, except for her oldestchild. Wondering about a blood test. She has not taken any medications for her symptoms due to a lack of insurance, which has been a barrier to obtaining ondansetron which she has used in the past. 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 A recent urinalysis showed 4 to 10 white blood cells, no nitrites, and a small amount of leukocytes. No bacteria were reported. REVIEW OF SYSTEMS No fever. No chills. No night sweats reported. Frequency of urination. OBJECTIVE Initial Vitals Temperature 01/30/25 1620 36.5 ??C Pulse Rate 01/30/25 1620 75 Heart Rate -- Resp Rate 01/30/25 1620 18 Blood Pressure 01/30/25 1620 123/80 SpO2 -- Pain Score 01/30/25 1616 5 - Moderate pain PHYSICAL EXAMINATION Physical Exam Constitutional: Nursing note and vitals reviewed. She appears not lethargic. No distress. HENT: Head: Normocephalic. Mouth/Throat: Oropharynx is clear and moist. Mucous membranes are moist. Eyes: Conjunctivae are normal. Cardiovascular: Normal rate. Pulmonary/Chest: Breath sounds normal. Abdominal: Soft. Bowel sounds are normal. There is no hepatosplenomegaly. There is no abdominal tenderness. There is no rebound and no guarding. Neurological: Alert. Skin: Skin is warm and dry. She is not diaphoretic. Psychiatric: She has a normal mood and affect. ASSESSMENT/PLAN Assessment & Plan Nausea and Vomiting Acute nausea and vomiting with negative test. Urinalysis suggests no UTI. History of not detected by urine tests. Defer blood test at present time. - Send urine sample for culture to rule out UTI. - Prescribe Zofran for nausea and vomiting. ED Course as of 01/30/25 1802 Tue Jan 30, 2025 1707 Microscopic Manual: White Blood Cells 4-10 Red Blood Cells None Seen Squamous Cells 4-10 Final Diagnoses: as of 01/30/251808 Nausea And Vomiting PRIMARY DIAGNOSIS Nausea And Vomiting [R11.2] Continue cautious monitoring. Ondansetron as needed for nausea. Following ondansetron try to force oral hydration. Once tolerates clear liquids okay to gradually advance diet as tolerates. Deferred blood test for evaluation. If menses is delayed follow-up with [facility] for further considerations. Reviewed strict return to care precautions. Follow-up with primary care or return to urgent care if symptoms fail to gradually improve worsen or as needed for any new concerns. Verbally agrees and understands today's plan of care. No further questions or concerns prior to discharge. Discharged in vitally stable actually improved condition less nausea when given ondansetron in triage today. Michelle Esteban APRN, C.N.P. 01/30/251817 documented in this encounter Plan of Treatment Not on file documented as of this encounter Procedures Procedure Name Priority Date/Time Associated Diagnosis Comments URINALYSIS WITH MICROSCOPIC IF INDICATED, U STAT 01/30/2025 4:25 PM CDT HC URINALYSIS AUTO W MICRO STAT 01/30/2025 4:25 PM CDT BACTERIAL CULTURE, AEROBIC + SUSC, URINE STAT 01/30/2025 4:25 PM CDT TEST, POCT, U (LAB) STAT 01/30/2025 4:25 PM CDT documented in this encounter Results * Microscopic Manual (01/30/2025 4:25 PM CDT) White Blood Cells 4-10 /hpf 01/30/2025 4:55 PM CDT NPRG Comment: ----REFERENCE VALUE---- Males: 0-3 Females: 0-10 Unknown: 0-10 Red Blood Cells None Seen 0 - 2 /hpf 01/30/2025 4:55 PM CDT NPRG Squamous Cells 4-10 /hpf 01/30/2025 4:55 PM CDT NPRG Urine 01/30/2025 4:25 PM CDT 01/30/2025 4:39 PM CDT us Michelle Esteban APRN, C.N.P. LAB URINE ORDERABLES Final Result Performing Organization Address City/[facility]/ZIP Co de Phone Number [facility] [address] [place] [address], [address] [address] * Test, POCT, Urine (Lab) (01/30/2025 4:25 PM CDT) Test, POCT, U Negative 01/30/2025 4:55 PM CDT NPRG Urine (Urine, Midstream) 01/30/2025 4:25 PM CDT 01/30/2025 4:39 PM CDT us Michelle Esteban APRN, C.N.P. LAB POCT ORDERABLES - DEVICE Final Result Performing Organization Address [facility] Co de Phone Number [facility] [address] [place] [phone], [address] [address] * Bacterial Culture, Aerobic + Susceptibility, Urine (01/30/2025 4:25 PM CDT) Urine Culture Urogenital microbiota, susceptibilities not performed per laboratory criteria. 02/01/2025 8:01 AM CDT MKTO Urine (Urine, Midstream) 01/30/2025 4:25 PM CDT 01/31/2025 12:50 AM CDT Comment:Specimen Source Site : Urine us Michelle Esteban APRN, C.N.P. LAB MICROBIOLOGY - G ENERAL ORDERABLES Final Result [facility] [address] [place] [address], [place] MKTO [facility] in [place] [address] [place] [address] * (ABNORMAL) Urinalysis with Microscopic if Indicated: Urine, Midstream (01/30/2025 4:25 PM CDT) Source Urine, Urine, Midstream 01/30/2025 4:39 PM CDT NPRG Clarity Clear Clear 01/30/2025 4:54 PM CDT NPRG Color Yellow 01/30/2025 4:54 PM CDT NPRG Comment: ----REFERENCE VALUE---- Colorless Yellow Mare Blood Negative Negative 01/30/2025 4:54 PM CDT NPRG Nitrite Negative Negative 01/30/2025 4:54 PM CDT NPRG Leukocyte Esterase Small(A) Negative 01/30/2025 4:54 PM CDT NPRG Protein Negative mg/dL 01/30/2025 4:54 PM CDT NPRG Comment: ----REFERENCE VALUE---- Negative Trace Glucose Negative Negative mg/dL 01/30/2025 4:54 PM CDT NPRG Ketones, QI(U) Negative Negative mg/dL 01/30/2025 4:54 PM CDT NPRG Bilirubin Negative Negative 01/30/2025 4:54 PM CDT NPRG pH 7.0 5.0 - 8.0 01/30/2025 4:54 PM CDT NPRG Specific [place] 1.010 1.001 - 1.035 01/30/2025 4:54 PM CDT NPRG Urobilinogen 0.2 0.2 - 1.0 mg/dL 01/30/2025 4:54 PM CDT NPRG Urine (Urine, Midstream) 01/30/2025 4:25 PM CDT 01/30/2025 4:39 PM CDT us Michelle Esteban APRN, C.N.P. LAB URINE ORDERABLES Final Result [facility] [address] [place] [address], [facility] NPRG [facility] [address] documented in this encounter Visit Diagnoses Diagnosis Nausea And Vomiting- Primary documented in this encounter Administered Medications Inactive Administered Medications - up to 3 most recent administrations Medication Order MAR Action Action Date Dose Rate Site ondansetron ODT disintegrating tablet 4 mg (Zofran-ODT) 4 mg, oral, Once as needed, nausea, Starting on 01/30/25 at 1616, For 1 dose, Select if no IV access. When splitting ODT at bedside, handle with gloves and a pill splitter to prevent moisture contact. Given 01/30/2025 4:24 PM CDT 4 mg documented in this encounter Active and Recently Administered Medications Times are shown in CDT. PRN Medication Order 01/28/2025 01/29/2025 01/30/2025 ondansetron ODT disintegrating tablet 4 mg (Zofran-ODT) (COMPLETED)(Linked Group 1) 4 mg, oral, Once as needed, nausea, Starting on Wed01/30/25 at 1616, For 1 dose, Select if no IV access. When splitting ODT at bedside, handle with gloves and a pill splitter to prevent moisture contact. 1624 (Given - Provid er: Reema Alan R.N.) Linked Groups Order Group 1: ondansetron ODT disintegrating tablet 4 mg (Zofran-ODT) (COMPLETED)Jump to med 4 mg, oral, Once as needed, nausea, Starting on 01/30/25 at 1616, For 1 dose, Select if no IV access. When splitting ODT at bedside, handle with gloves and a pill splitter to prevent moisture contact. Or ondansetron (PF) injection 4 mg (Zofran) (COMPLETED) 4 mg, intravenous, Once as needed, nausea, Starting on e 01/30/25 at 1616, For 1 dose, Select if IV access obtained. documented in this encounter Care Teams Legal Records Manager Relationship Specialty Start Date End Date Elsewhere, Pcp PCP - General Internal Medicine 08/31/23 documented as of this encounter
--- OUTSIDE RECORDS SUMMARY | 2025-02-05 17:20 | XMS_ITS | Encounter Summary ---
Author Organization [facility] Address [address] [place] [address] Care Team Providers Care Order Puller Name Role Phone Elsewhere, Pcp Primary Care Provider Unavailabl e Reason for Visit * Reason Comments Urinary Tract Infection Patient presents with concern of UTI.States today she started having lower ab pressure, back pain and burning with urination. Patient states she is 4 weeks and was recommended by OBGYN to come in. Encounter Details Date Type Department Care Team ([facility] st Contact Info) Description 02/05/2025 6:20 PM CDT - 02/05/2025 8:42 PM CDT Emergency [place] [facility] [address] [place] [address] [phone] Michelle Esteban, SUNIL, C.N.P. [address] [place] [address] [phone] Dysuria (Primary Dx) Discharge Disposition: Home or Self Care Social History Tobacco Use Types Packs/Day Years Used Date Smoking Tobacco: Never Smokeless Tobacco: Never Alcohol Use Standard Drinks/Week Comments Not Currently 0 (1 standard drink = 0.6 oz pur e alcohol) Rarely Comments Yes Sex and Gender Information Value Date Recorded Sex Assigned at Not on file Legal Sex Female 6:45 PM CDT Gender Identity Not on file Sexual Orientation Not on file documented as of this encounter Last Filed Vital Signs Vital Sign Reading Time Taken Comments Blood Pressure 134/89 02/05/2025 5:47 PM CDT Pulse 106 02/05/2025 5:47 PM CDT Temperature 37 C (98.6 F) 02/05/2025 5:47 PM CDT Respiratory Rate 16 02/05/2025 5:47 PM CDT Oxygen Saturation 99% 02/05/2025 5:47 PM CDT Inhaled Oxygen Concentration - - Weight 111 kg (245 lb 9.6 oz) 02/05/2025 5:51 PM CDT Height - - Body Mass Index 40.87 01/30/2025 4:16 PM CDT documented in this encounter Discharge Instructions * Discharge Instructions* Michelle Esteban APRN, C.N.P. - 02/05/2025 7:05 PM CDT Remain well hydrated. We will notify you if urine culture indicates a need to start an antibiotic. Seek care sooner if symptoms fail to improve, if symptoms worsen or as needed for any new concerns. * Attachments The following attachments cannot be sent through Care Everywhere. * Dysuria (Mauritanian) documented in this encounter Medications at Time [...] Notes * Michelle Esteban, SUNIL, C.N.P. - 02/05/2025 8:28 PM CDT The patient verbally consented to an audio recording of their visit to assist with the completion of documentation. SUBJECTIVE CHIEF COMPLAINT/REASON FOR VISIT Urinary Tract Infection (Patient presents with concern of UTI.States today she started having lowerab pressure, back pain and burning with urination. Patient states she is 4 weeks and was recommended by OBGYN to come in. ) HISTORY OF PRESENT ILLNESS History of Present Illness Loyda Ireland is a 24 year old female who presents with early symptoms and urinary discomfort. She is four weeks and was seen by a appliance installer in [place] three days ago to confirm her . She has a history of negative urine tests in the past, requiring blood tests for confirmation, which was also the case with her previous pregnancies. She did in fact have a urine test in urgent care which was negative on 01/30/2025. She experiences lower abdominal pressure and frequent urination, describing a sensation of a full bladder with incomplete emptying, leading to frequent trips to the bathroom. No unusual vaginal discharge or odor. She has a history of miscarriage, contributing to her current anxiety about her symptoms of possible uterine clamping versus bladder spasms or urinary tract infection. She experiences nausea and vomiting every morning, as well as breast tenderness, which she describes as feeling like they are 'falling off'. Which she has not endorse with previous pregnancies. Her youngest child is 7 years old. She has been using Zofran as needed for nausea. No fever or chills. Nonight sweats. No unusual back pain. No flank pain. She mentions lower back pain, described as a burning sensation, present for the past week, which she associates with a previous liposuction and BBL procedure done a year ago. No constipation, noting frequent bowel movements and increased gas since finding out she is the past 3 days. REVIEW OF SYSTEMS Negative unless noted above. OBJECTIVE Initial Vitals [02/05/25 1747] Temperature 37 ??C Pulse Rate 106 Heart Rate Resp Rate 16 Blood Pressure 134/89 SpO2 99 % Pain Score 6 PHYSICAL EXAMINATION Physical Exam Vitals signs and nursing note reviewed. Constitutional General: She is not in acute distress. Appearance: Normal appearance. HENT Head: Comments: HEENT: Grossly intact. Cardiovascular Rate and Rhythm: Normal rate. Pulmonary Effort: Pulmonary effort is normal. Abdominal General: Abdomen is round. Palpations: Abdomen is soft. There is no mass. Tenderness: There is no abdominal tenderness. There is suprapubic tenderness. No acute abdomen. no hepatosplenomegaly to palpation. There is no right CVA tenderness or left CVA tenderness. Mid back discomfort in lumbar sacral region to palpation. Skin General: Skin is warm and dry. Findings: No rash. Neurological Mental Status: She is alert. Psychiatric Mood and Affect: Mood normal. Behavior: Behavior normal. ASSESSMENT/PLAN Results for orders placed or performed during the hospital encounter of 02/05/25 Urinalysis with Microscopic if Indicated: Urine, Midstream Collection Time: 02/05/25 5:55 PM Result Value Ref Range Source Urine, Urine, Midstream Clarity Clear Clear Color Yellow Blood Negative Negative Nitrite Negative Negative Leukocyte Esterase Small (A) Negative Protein Negative mg/dL Glucose Negative Negative mg/dL Ketones, QI(U) Negative Negative mg/dL Bilirubin Negative Negative pH 7.0 5.0 - 8.0 Specific [place] 1.010 1.001 - 1.035 Urobilinogen 0.2 0.2 - 1.0 mg/dL Microscopic Manual Collection Time: 02/05/25 5:55 PM Result Value Ref Range White Blood Cells 4-10 /hpf Red Blood Cells None Seen 0 - 2 /hpf Squamous Cells Occ-3 /hpf Bacteria Present (A) None Seen Test, POCT, Urine (Lab) Collection Time: 02/05/25 5:55 PM Result Value Ref Range Test, POCT, U Positive (A) Assessment & Plan Confirmed four-week with nausea, vomiting, and breast tenderness. Anxiety due to previousmiscarriage. Concerns about ectopic due to lower abdominal pressure. - Order urine culture to check for bacterial growth. - Notify if urine culture indicates need for antibiotics. Defer at present time as white blood cells are within normal limits. - Advise follow-up with appliance installer if symptoms worsen or new concerns arise. Prior to 03/05/2025 scheduled appointment. - Provide information on dysuria and advise to remain well hydrated. Nausea and Vomiting in Experiencing morning nausea and vomiting, consistent with early . Prefers to let symptoms run her course despite having Zofran available. - Advise use of Zofran as needed for nausea. Dysuria Uncomfortable urination with lower abdominal pressure and frequent urination. No signs of bacterialurinary tract infection on initial urinalysis. Differential diagnosis includes -related changes or other non-infectious causes. - Order urine culture to check for bacterial growth. - Notify if urine culture indicates need for antibiotics. - Advise to remain well hydrated. - Provide information on dysuria. Back Pain Lower back pain with burning sensation, possibly related to previous liposuction and BBL procedure.Symptoms re-emerged in the past week, possibly exacerbated by cold weather per patient report. - follow-up if pain persists or worsens. Or as needed for any new concerns. Final Diagnoses: as of 02/05/252027 Dysuria PRIMARY DIAGNOSIS Dysuria [R30.0] Pleasant 24-year-old female presents to urgent care today with concerns of frequency urgency with urination. Feeling of lower abdominal fullness. Urinalysis today is negative for nitrites. White blood cells within normal limits. Will send off for urine culture and initiate antibiotic only if positive culture. Agrees. Patient is concerned about history of miscarriage and ectopic . Informed urgent care does not provide advanced imaging. Follow-up with nurse midwives in [place] for further evaluation andrecommendations. Unclear what is causing this fullness. Continue cautious monitoring. Could be initial signs of versus bacteria with urine culture pending. Or another cause. Referred to nurse appliance installer for further evaluation and recommendations. Agrees. Reviewed strict return to care precautions. To remain well hydrated. To follow- up for any emergent concerns including but not limited to abdominal pain, flank pain, fever, chills, or any other emergent concerns to the emergency department. Verbally agree and understands tonight plan of care. Patient is discharged in vitally stable independent ambulatory stable condition. Michelle Esteban APRN, C.N.P. 02/05/252040 documented in this encounter Plan of Treatment Not on file documented as of this encounter Procedures Procedure Name Priority Date/Time Associated Diagnosis Comments URINALYSIS WITH MICROSCOPIC IF INDICATED, U STAT 02/05/2025 5:55 PM CDT HC URINALYSIS AUTO W MICRO STAT 02/05/2025 5:55 PM CDT BACTERIAL CULTURE, AEROBIC + SUSC, URINE STAT 02/05/2025 5:55 PM CDT TEST, POCT, U (LAB) STAT 02/05/2025 5:55 PM CDT Dysuria documented in this encounter Results * (ABNORMAL) Test, POCT, Urine (Lab) (02/05/2025 5:55 PM CDT) Test, POCT, U Positive(A ) 02/05/2025 7:09 PM CDT NPRG Urine (Urine, Midstream) 02/05/2025 5:55 PM CDT 02/05/2025 7:01 PM CDT us Michelle Esteban APRN, C.N.P. LAB POCT ORDERABLES - DEVICE Final Result [facility] [address] [place] [address], [facility] NPRG [facility] [address] [place] [address] * (ABNORMAL) Microscopic Manual (02/05/2025 5:55 PM CDT) White Blood Cells 4-10 /hpf 02/05/2025 6:12 PM CDT NPRG Comment: ----REFERENCE VALUE---- Males: 0-3 Females: 0-10 Unknown: 0-10 Red Blood Cells None Seen 0 - 2 /hpf 02/05/2025 6:12 PM CDT NPRG Squamous Cells Occ-3 /hpf 02/05/2025 6:12 PM CDT NPRG Bacteria Present(A) None Seen 02/05/2025 6:12 PM CDT NPRG Urine 02/05/2025 5:55 PM CDT 02/05/2025 6:02 PM CDT Michelle Esteban APRN, C.N.P. LAB URINE ORDERABLES Final Result [facility] [address] [place] [address], [facility] NPRG [facility] [place] [address] [place] [address] * Bacterial Culture, Aerobic + Susceptibility, Urine (02/05/2025 5:55 PM CDT) Pathologist [facility] Urine Culture Urogenital microbiota, susceptibilities not performed per laboratory criteria. 02/06/2025 3:55 PM CDT MKTO Urine (Urine, Midstream) 02/05/2025 5:55 PM CDT 02/05/2025 9:59 PM CDT Comment:Specimen Source Site : Urine Michelle Esteban APRN, C.N.P. LAB MICROBIOLOGY - G ENERAL ORDERABLES Final Result [facility] [address] [place] [address], [place] MKTO [facility] [place] [address] [place] [address] * (ABNORMAL) Urinalysis with Microscopic if Indicated: Urine, Midstream (02/05/2025 5:55 PM CDT) Source Urine, Urine, Midstream 02/05/2025 6:02 PM CDT NPRG Clarity Clear Clear 02/05/2025 6:05 PM CDT NPRG Color Yellow 02/05/2025 6:05 PM CDT NPRG Comment: ----REFERENCE VALUE---- Colorless Yellow Mare Blood Negative Negative 02/05/2025 6:05 PM CDT NPRG Nitrite Negative Negative 02/05/2025 6:05 PM CDT NPRG Leukocyte Esterase Small(A) Negative 02/05/2025 6:05 PM CDT NPRG Protein Negative mg/dL 02/05/2025 6:05 PM CDT NPRG Comment: ----REFERENCE VALUE---- Negative Trace Glucose Negative Negative mg/dL 02/05/2025 6:05 PM CDT NPRG Ketones, QI(U) Negative Negative mg/dL 02/05/2025 6:05 PM CDT NPRG Bilirubin Negative Negative 02/05/2025 6:05 PM CDT NPRG pH 7.0 5.0 - 8.0 02/05/2025 6:05 PM CDT NPRG Specific [place] 1.010 1.001 - 1.035 02/05/2025 6:05 PM CDT NPRG Urobilinogen 0.2 0.2 - 1.0 mg/dL 02/05/2025 6:05 PM CDT NPRG Urine (Urine, Midstream) 02/05/2025 5:55 PM CDT 02/05/2025 6:02 PM CDT us Michelle Esteban APRN, C.N.P. LAB URINE ORDERABLES Final Result [facility] [address] [place] [address], [facility] NPRG [facility] [address] [place] [address] documented in this encounter Visit Diagnoses Diagnosis Dysuria- Primary documented in this encounter Care Teams Order Puller Relationship Specialty Start Date End Date Elsewhere, Pcp PCP - General Internal Medicine 08/31/23 documented as of this encounter
--- OUTSIDE RECORDS SUMMARY | 2025-03-02 06:55 | XMS_ITS | Encounter Summary ---
Author Organization [facility] Address [address] [place] [address] Care Team Providers Care Airborne Operations Manager Name Role Phone Elsewhere, Pcp Primary Care Provider Unavailabl e Encounter Details Date Type Department Care Team (Late st Contact Info) Description 02/01/2025 Results Follow-Up Urgent Care in [place], [place] [address] [place] [phone] Urbano Torrez, P.A.-Reji., P.A. [address] [place] [address] Bacterial Culture, Aerobic + Susceptibility, Urine Social [...] on filedocumented in this encounter Care Teams Airborne Operations Manager Relationship Specialty Start Date End Date Elsewhere, Pcp PCP - General Internal Medicine 08/31/23 documented as of this encounter
--- OUTSIDE RECORDS SUMMARY | 2025-03-02 06:55 | XMS_ITS | Clinical Summary ---
Author Organization [facility] Address [address] [place] [address] Care Team Providers Care Roster Clerk Name Role Phone Elsewhere, Pcp Primary Care Provider Unavailabl e Source Comments Patient records contain information from all sites at [facility]. For routine questions regarding patient records, call [phone] during business hours, M-F 8:00 AM - 5:00 PM Central Time. Record requests for emergency care only can be directed to [phone] at any time.[facility] Allergies No known active allergies Medications acetaminophen (TYLENOL) 500 mg tablet Take 1,000 mg by mouth every 6 (six) hours as needed for pain. Active ibuprofen (ADVIL,MOTRIN) 200 mg capsule Take 800 mg by mouth every 6 (six) hours as needed for pain. Active cloNIDine (CATAPRES) 0.2 mg tablet Take 0.2 mg by mouth at bedtime as needed. for sleep 11/28/19 23 Active ARIPiprazole (ABILIFY) 5 mg tablet Take 2.5 mg by mouth daily. Active Lo-Zumandimine, 28, 3-0.02 mg per tablet Take 1 tablet by mouth daily. 02/28/20 23 Active dextroamphetamine- amphetamine (AdderalL) 30 mg tablet Take 30 mg by mouth daily. Active escitalopram (Lexapro) 20 mg tablet Take 20 mg by mouth daily. Active cyclobenzaprine (FlexeriL) 5 mg tablet Take 5 mg by mouth at bedtime as needed for muscle spasms. Active ondansetron (Zofran) 4 mg tablet Take 4 mg by mouth every 8 (eight) hours as needed for nausea or vomiting. Active butalbital-acetami nophen-caff (Esgic) 50-325-40 mg per tablet Take 1 tablet by mouth 2 (two) times a day. 12/30/19 25 Active levonorgestreL (Mirena) 21 mcg/24hr (up to 8 yrs) 52 mg IUD 1 Device by intrauterine route. Active ondansetron ODT (Zofran-ODT) 4 mg disintegrating tablet Dissolve 1 tablet (4 mg total) in the mouth every 8 (eight) hours as needed for nausea or vomiting for up to 10 days. 20 tablet 01/31/20 25 025 Active Problems Comments Yes No known active problems Encounters Date Type Department Care Team Description 02/06/2025 Results Follow-Up [facility] [address] [place] [address], [place] [phone] Dominga Chau P.A.Larisa., P.A. Bacterial Culture, Aerobic + Susceptibility, Urine 02/05/2025 6:20 PM CDT - 02/05/2025 8:42 PM CDT Emergency [facility] [address] [place] [address], [place] [phone] Michelle Esteban APRN, C.N.P. Dysuria (Primary Dx) Discharge Disposition: Home or Self Care 02/01/2025 Results Follow-Up Urgent Care in [place], [place] [address] [facility] [place] [phone] Urbano Torrez P.A.-C., P.A. Bacterial Culture, Aerobic + Susceptibility, Urine 01/30/2025 4:45 PM CDT - 01/30/2025 6:28 PM CDT Emergency [facility] [address] [place] [address], [place] [phone] Michelle Esteban APRN, C.N.P. Nausea And Vomiting (Primary Dx) Discharge Disposition: Home or Self Care 12/26/2024 2:43 PM CDT - 12/26/2024 3:49 PM CDT Emergency [facility] [address] [place] [address], [place] [phone] Michelle Esteban APRN, C.N.P. Headache Unspecified [R51.9] (Primary Dx) Discharge Disposition: Home or Self Care 12/15/2024 9:35 PM CDT - 12/15/2024 10:51 PM CDT Emergency [facility] [address] [place] [phone] Sahra Jacobsen M.D., M.B.A. Depression Situational (Primary [...] Depression Screening (Annual PHQ-2) 04/19/2024 COVID-19 Vaccine ( season) 2024 07/13/2023 Influenza Vaccine (#1) 2024 [...] 8.0 02/05/2025 6:05 PM CDT NPRG Specific [place] 1.010 1.001 - 1.035 02/05/2025 6:05 PM CDT NPRG Urobilinogen 0.2 0.2 - 1.0 mg/dL 02/05/2025 6:05 PM CDT NPRG Urine (Urine, Midstream) 02/05/2025 5:55 PM CDT 02/05/2025 6:02 PM CDT us Michelle Esteban APRN, C.N.P. LAB URINE ORDERABLES Final Result [facility] [address] [place] [address], [place] NPRG [address] [address] * (ABNORMAL) Microscopic Manual (02/05/2025 5:55 PM [...] APRN, C.N.P. LAB URINE ORDERABLES Final Result [facility] [address] [place] [address], [address] [address] * Bacterial Culture, Aerobic + Susceptibility, Urine [...] MICROBIOLOGY - G ENERAL ORDERABLES Final Result [facility] [address] [place] [address], [facility] [place] [address] [place] [address] * (ABNORMAL) Test, POCT, Urine (Lab) (02/05/2025 5:55 PM CDT) Only the most recent of2 resultswithin the time period is included. Test, POCT, U Positive(A ) 02/05/2025 7:09 PM CDT NPRG Urine (Urine, Midstream) 02/05/2025 5:55 PM CDT 02/05/2025 7:01 PM CDT us Michelle Esteban APRN, C.N.P. LAB POCT ORDERABLES - DEVICE Final Result [facility] [address] [place] [address], [facility] NPRG [facility] [address] [place] [address] * Comprehensive Metabolic Panel (08/31/2023 7:24 AM [...] 7:24 AM CDT 08/31/2023 7:26 AM CDT Keyon Juarez M.D. LAB BLOOD ADD-ON Final Resul t [facility] [address] [place] [address], [facility] NPRG [facility] [address] [place] [address] from Last 3 Months or Most Recently Relevant to Health Maintenance Insurance [place] [employer] Care Teams Roster Clerk Relationship Specialty Start Date End Date Elsewhere, Pcp PCP - General Internal Medicine 08/31/23
--- OUTSIDE RECORDS SUMMARY | 2025-03-02 06:55 | XMS_ITS | Encounter Summary ---
Author Organization [facility] Address [address] [place] [address] Care Team Providers Care Chopper Operator Name Role Phone Elsewhere, Pcp Primary Care Provider Unavailabl e Encounter Details Date Type Department Care Team (Late st Contact Info) Description 02/06/2025 Results Follow-Up [facility] [address] [place] [phone] Dominga Chau P.A.-C., P.A. [address] [place] [phone] Bacterial Culture, Aerobic + Susceptibility, Urine Social [...] on filedocumented in this encounter Care Teams Chopper Operator Relationship Specialty Start Date End Date Elsewhere, Pcp PCP - General Internal Medicine 08/31/23 documented as of this encounter
--- OUTSIDE RECORDS SUMMARY | 2025-03-02 06:55 | XMS_ITS | Clinical Summary ---
Author Organization [facility] Address [address] [place] [address] Care Team Providers Care Wringer Operator Name Role Phone Pcp, No Primary Care [...] Comments Blood Pressure 123/82 05/18/2024 9:04 AM HORTICULTURAL MANAGER Pulse 80 05/18/2024 9:04 AM HORTICULTURAL MANAGER Temperature 37 C (98.6 F) 05/18/2024 9:12 AM HORTICULTURAL MANAGER Respiratory Rate 16 05/18/2024 9:04 AM HORTICULTURAL MANAGER Oxygen Saturation 97% 05/18/2024 9:04 AM HORTICULTURAL MANAGER Inhaled Oxygen Concentration - - Weight 108.4 kg (239 lb) 05/18/2024 9:04 AM HORTICULTURAL MANAGER Height 165.1 cm (5' 5) 05/18/2024 9:04 AM HORTICULTURAL MANAGER Body Mass Index 39.77 05/18/2024 9:04 AM HORTICULTURAL MANAGER Plan of Treatment Not on file Care Teams Wringer Operator Relationship Specialty Start Date End Date Pcp, No . PCP - General 01/26/20
[2025-03-02 06:58] VITALS: BP 137/85; PULSE 100; RESP 16; TEMP 36.7; O2SAT 98; BMI 39.9
--- NOTE | 2025-03-02 07:52 | ED.GENADULT ---
HPI - General Adult General Chief complaint: Nausea/Vomiting <Matt Graves MD - Last Filed: 03/03/25 00:37> Stated complaint: vomiting - 8 weeks <Matt Graves MD - Last Filed: 03/03/25 00:37> Time Seen by Provider: 03/02/25 07:50 <Matt rGaves MD - Last Filed: 03/03/25 00:37> History of Present Illness HPI narrative: Patient is a 2 para to woman who is a weeks . She had hyperemesis with her 1st . She has had increasing nausea and vomiting the last 2 days. She has not had diarrhea. She has no abdominal pain. She has no vaginal bleeding. She has had no fevers no chills no night sweats no cough no shortness of breath. She has otherwise been feeling fine. <Matt Graves MD - Last Filed: 03/03/25 00:37> Related Data Home medications: Home Medications ?Medication ?Instructions ?Recorded ?Confirmed [id number] 3 fatty no.1 27 cap PO 02/12/25 02/12/25 mg-1 mg-300 mg capsule Previous Rx's ?Medication ?Instructions ?Recorded metoclopramide HCl 10 mg tablet 10 mg PO Q6H PRN nausea and 02/28/25 (Reglan) vomiting #30 tabs omeprazole 20 mg capsule,delayed 20 mg PO QDAY #90 caps 02/28/25 release prochlorperazine maleate 5 mg 5 mg PO QID PRN #10 tabs 03/02/25 tablet (Compazine) <Matt Graves MD - Last Filed: 03/03/25 00:37> Allergies/adverse reactions: Allergies Allergy/AdvReac Type Severity Reaction Status Date / Time aripiprazole (From Abilify) AdvReac worse Verified 03/02/25 07:02 depression sertraline (From Zoloft) AdvReac anger Verified 03/02/25 07:02 <Matt Graves MD - Last Filed: 03/03/25 00:37> Review of Systems Status of ROS: Reports: 10 or more systems reviewed and unremarkable except as noted in History and below <Matt Graves MD - Last Filed: 03/03/25 00:37> [facility] Medical History: Medical History Overweight ?E66.3 - Overweight (ICD-10) HSV-1 infection ?B00.9 - Herpesviral infection, unspecified (ICD-10) History of chlamydia ?Z86.19 - Personal history of other infectious and parasitic diseases (ICD-10) History of substance abuse ?F19.11 - Other psychoactive substance abuse, in remission (ICD-10) Anxiety ?F41.9 - Anxiety disorder, unspecified (ICD-10) GERD (gastroesophageal reflux disease) ?K21.9 - Gastro-esophageal reflux disease without esophagitis (ICD-10) Insomnia ?G47.00 - Insomnia, unspecified (ICD-10) History of seizure ?Z87.898 - Personal history of other specified conditions (ICD-10) Acne ?L70.9 - Acne, unspecified (ICD-10) Migraine without aura ?G43.009 - Migraine without aura, not intractable, without status migrainosus (ICD-10) History of abnormal cervical Pap smear ?Z87.42 - Personal history of other diseases of the female genital tract (ICD-10) PTSD (post-traumatic stress disorder) ?F43.10 - Post-traumatic stress disorder, unspecified (ICD-10) Depression ?F32.A - Depression, unspecified (ICD-10) <Matt Graves MD - Last Filed: 03/03/25 00:37> Surgical History: Surgical History Encounter for IUD insertion (03/2023) ?Z30.430 - Encounter for insertion of intrauterine contraceptive device (ICD-10) Hx of tympanostomy tubes (1998) ?Z98.890 - Other specified postprocedural states (ICD-10) History of appendectomy (2007) ?Z90.49 - Acquired absence of other specified parts of digestive tract (ICD-10) History of tonsillectomy (1999) ?Z90.89 - Acquired absence of other organs (ICD-10) <Matt Graves MD - Last Filed: 03/03/25 00:37> Family History: Family History Mother Bipolar disorder COPD (chronic obstructive pulmonary disease) Diabetes Myocardial infarction, Onset Age: 43 Stroke, Onset Age: 45 Sister Bipolar disorder Family history of drug addiction Father CHF (congestive heart failure) COPD (chronic obstructive pulmonary disease) Diabetes Bipolar disorder Other Breast cancer <Matt Graves MD - Last Filed: 03/03/25 00:37> Social History: Social History (Updated 02/12/25 @ 15:36 by Dina Lopez PA-C) 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 Lives in [place] 10 year-old son lives with her parents in [place]. Does not smoke cigarettes never did Does not exercise History of cocaine use resolved since 2014, history of alcohol use abuse resolved since 2014 What is your current living situation?: I presently have a place to live Problems where you live: no known problems In the past 12 months, utilities in danger of being shut off: no In past 12 months, lack of transportation kept you from medical appts, meetings, work, or getting things needed for daily living: no In the past 12 mos, have been you worried that your food would run out before you had money to buy more?: never true In the past 12 mos, the food you bought just didn't last and you didn't have money to buy more?: never true How often does anyone, including family, friends and others, physically hurt you: never How often does anyone, including family, friends and others, insult or talk down to you: never How often does anyone, including family, friends and others, threaten you with harm: never How often does anyone, including family, friends and others, scream or curse at you: never <Matt Graves MD - Last Filed: 03/03/25 00:37> Exam Narrative: Exam Narrative: EXAM GENERAL: Patient appears comfortable and well. Overweight. EYES: No scleral icterus. LYMPH: No supraclavicular or cervical lymphadenopathy. SKIN: Visible skin seen during exam normal or with benign process only. EXT: No dependent lower extremity pedal edema. HEART: Regular rate and rhythm with no murmurs, rubs, or gallops. LUNGS: Clear to auscultation bilaterally with no crackles or wheezes. ABD: Soft, non tender, non distended. PSYCH: Good eye contact, speech is not pressured. <Matt Graves MD - Last Filed: 03/03/25 00:37> Const: Vital Signs, click to edit/add: Vital Signs - 24 hr 03/02/25 06:58 03/02/25 11:21 Temperature 98.0 F Pulse Rate [Right Pulse Oximeter] 100 89 Respiratory Rate 16 18 Blood Pressure [Ri ght Upper Arm] 137/85 131/90 H Pulse Oximetry 98 98 Oxygen Delivery Me thod Room Air Room Air <Matt Graves MD - Last Filed: 03/03/25 00:37> Vital Signs, click to edit/add: Vital Signs - 24 hr 03/02/25 06:58 03/02/25 11:21 Temperature 98.0 F Pulse Rate [Right Pulse Oximeter] 100 89 Respiratory Rate 16 18 Blood Pressure [Ri ght Upper Arm] 137/85 131/90 H Pulse Oximetry 98 98 Oxygen Delivery Me thod Room Air Room Air <Gloria Murillo MD - Last Filed: 03/02/25 11:11> Course Course ED Course: Patient seen and examined. CBC comprehensive metabolic panel lipase pending. I did give her 4 mg of Zofran and 1 L of normal saline to begin with. <Matt Graves MD - Last Filed: 03/03/25 00:37> Reevaluation(s) Time of Reevaluation #1: 09:55 <Gloria Murillo MD - Last Filed: 03/02/25 11:11> Reevaluation #1: Patient states she still feels nauseated, maybe feels a little better. She is alert, interactive, looks pale. She does tell me at this time that she has tried the B6 and Unisom at home. She also has Zofran and Reglan and is not having relief of symptoms at home despite use of this medicine. We are going to start another L of fluids, will give her L of lactated Ringer's, will talk to OB. <Gloria Murillo MD - Last Filed: 03/02/25 11:11> Time of Reevaluation #2: 10:26 <Gloria Murillo MD - Last Filed: 03/02/25 11:11> Reevaluation #2: Reviewed patient's urinalysis, this was collected on arrival, was not ordered until now but this was prior to any fluids in she has absolutely no ketones. <Gloria Murillo MD - Last Filed: 03/02/25 11:11> Time of Reevaluation #3: 11:08 <Gloria Murillo MD - Last Filed: 03/02/25 11:11> Reevaluation #3: Patient feels the nausea is better controlled with the Compazine. Will send in a prescription for Compazine for her. She is aware tonight use all of them at the same time. We did review that she had no ketones on her urine which is certainly reassuring. She should continue pushing fluids. She has an appointment on Wednesday and should keep this. With no ketonuria noted, do not feel that we need to bring this patient back for scheduled IV fluids through the weekend. We will see how she does with a trial of outpatient management with Compazine in addition for nausea. <Gloria Murillo MD - Last Filed: 03/02/25 11:11> Consultations Consultation #1: Have spoken with Dr. Michael from OB. No urinalysis was obtained on arrival, we will still check when as if she still having ketones despite IV fluids, may need some IV fluids over the weekend. She has no electrolyte abnormalities at this time but is relaying a history of ongoing nausea and vomiting despite appropriate medications at home. She related to me that she has Zofran, Reglan as well as trying the B6 and Unisom at home. We will try Compazine here, see if she responds to that. We may need to pull her back for some IV fluids through the weekend until she can follow up on Wednesday. They may need to consider putting a PICC line in this patient if she is having ongoing severe symptoms. Did look in her records and she did have an ultrasound on February 09 with intrauterine Knight of 5 weeks 3 days. This puts her at about 8 weeks 4 days right now. <Gloria Murillo MD - Last Filed: 03/02/25 11:11> Time: 10:02 <Gloria Murillo MD - Last Filed: 03/02/25 11:11> Vital Signs Vital signs: Initial Vital Signs Temperature 98.0 F 03/02/25 06:58 Temperature Source Temporal Artery Scan 03/02/25 06:58 Pulse Rate 100 03/02/25 06:58 Pulse Rhythm Regular 03/02/25 06:58 Pulse Strength 3+ Normal 03/02/25 06:58 Respiratory Rate 16 03/02/25 06:58 Blood Pressure 137/85 03/02/25 06:58 Blood Pressure Mean 102 03/02/25 06:58 Blood Pressure Position Sitting 03/02/25 06:58 Pulse Oximetry 98 03/02/25 06:58 Oxygen Delivery Method Room Air 03/02/25 06:58 Vital Signs Temperature 98.0 F 03/02/25 06:58 Pulse Rate 100 03/02/25 06:58 Respiratory Rate 16 03/02/25 06:58 Blood Pressure 137/85 03/02/25 06:58 Pulse Oximetry 98 03/02/25 06:58 Oxygen Delivery Method Room Air 03/02/25 06:58 Temperature 98.0 F 03/02/25 06:58 Pulse Rate 89 03/02/25 11:21 Respiratory Rate 18 03/02/25 11:21 Blood Pressure 131/90 H 03/02/25 11:21 Pulse Oximetry 98 03/02/25 11:21 Oxygen Delivery Method Room Air 03/02/25 11:21 <Matt Graves MD - Last Filed: 03/03/25 00:37> Initial Vital Signs Temperature 98.0 F 03/02/25 06:58 Temperature Source Temporal Artery Scan 03/02/25 06:58 Pulse Rate 100 03/02/25 06:58 Pulse Rhythm Regular 03/02/25 06:58 Pulse Strength 3+ Normal 03/02/25 06:58 Respiratory Rate 16 03/02/25 06:58 Blood Pressure 137/85 03/02/25 06:58 Blood Pressure Mean 102 03/02/25 06:58 Blood Pressure Position Sitting 03/02/25 06:58 Pulse Oximetry 98 03/02/25 06:58 Oxygen Delivery Method Room Air 03/02/25 06:58 Vital Signs Temperature 98.0 F 03/02/25 06:58 Pulse Rate 100 03/02/25 06:58 Respiratory Rate 16 03/02/25 06:58 Blood Pressure 137/85 03/02/25 06:58 Pulse Oximetry 98 03/02/25 06:58 Oxygen Delivery Method Room Air 03/02/25 06:58 Temperature 98.0 F 03/02/25 06:58 Pulse Rate 89 03/02/25 11:21 Respiratory Rate 18 03/02/25 11:21 Blood Pressure 131/90 H 03/02/25 11:21 Pulse Oximetry 98 03/02/25 11:21 Oxygen Delivery Method Room Air 03/02/25 11:21 <Gloria Murillo MD - Last Filed: 03/02/25 11:11> Medications Administered Medications: Discontinued Medications Generic Name Dose Route Start Last Admin Trade Name Freq PRN Reason Stop Dose Admin Sodium Chloride 1,000 mls @ 1,000 mls/hr 03/02/25 07:54 03/02/25 09:15 0.9 % Sodium Chloride 1000 Ml IV 03/02/25 08:53 Infused .Q1H BRYANNA Infusion Lactated Ringer's 1,000 mls @ 1,000 mls/hr 03/02/25 09:57 03/02/25 11:12 Lactated Ringers 1000 Ml IV 03/02/25 10:56 Infused .Q1H ONE Infusion Ondansetron HCl 4 mg 03/02/25 07:54 03/02/25 08:16 Ondansetron 2 Mg/Ml Inj IVP 4 mg ONCE PRN Administration Prochlorperazine 5 mg 03/02/25 10:02 03/02/25 10:11 Prochlorperazine 5 Mg/Ml Vial IV 03/02/25 10:03 5 mg ONCE ONE Administration <Matt Graves MD - Last Filed: 03/03/25 00:37> Discontinued Medications Generic Name Dose Route Start Last Admin Trade Name Freq PRN Reason Stop Dose Admin Sodium Chloride 1,000 mls @ 1,000 mls/hr 03/02/25 07:54 03/02/25 09:15 0.9 % Sodium Chloride 1000 Ml IV 03/02/25 08:53 Infused .Q1H BRYANNA Infusion Lactated Ringer's 1,000 mls @ 1,000 mls/hr 03/02/25 09:57 03/02/25 11:12 Lactated Ringers 1000 Ml IV 03/02/25 10:56 Infused .Q1H ONE Infusion Ondansetron HCl 4 mg 03/02/25 07:54 03/02/25 08:16 Ondansetron 2 Mg/Ml Inj IVP 4 mg ONCE PRN Administration Prochlorperazine 5 mg 03/02/25 10:02 03/02/25 10:11 Prochlorperazine 5 Mg/Ml Vial IV 03/02/25 10:03 5 mg ONCE ONE Administration <Gloria Murillo MD - Last Filed: 03/02/25 11:11> Medical Decision Making Lab Data Lab results reviewed: Yes I reviewed the patient's lab results <Gloria Murillo MD - Last Filed: 03/02/25 11:11> Labs: Lab Results 03/02/25 03/02/25 Range/Units 07:32 08:14 WBC 7.14 (4.50-11.00) K/uL RBC 4.28 (4.00-5.20) m/uL Hgb 12.8 (12.0-16.0) gm/dL Hct 40.0 (33.0-51.0) % MCV 94 (80-100) fL MCH 30 (26-34) pg MCHC 32 (32-36) gm/dL RDW Coeff of Gabo 12.4 (11.5-15.5) % Plt Count 202 (140-440) K/uL Neut % (Auto) 75.8 H (42.0-72.0) % Lymph % (Auto) 17.2 L (20-44) % [place] % (Auto) 5.7 (0.0-11.0) % Eos % (Auto) 1.1 (0.0-7.0) % Baso % (Auto) 0.1 (0.0-3.0) % Neut # (Auto) 5.40 (1.7-7.0) K/uL Lymph # (Auto) 1.20 (0.90-2.90) K/uL [place] # (Auto) 0.40 (0.00-0.90) K/UL Eos # (Auto) 0.08 (0.00-0.50) K/uL Baso # (Auto) 0.01 (0.00-0.30) K/uL Abs Immat Gran (auto) 0.01 (0.00-0.30) K/uL Imm/Tot Granulo (auto) 0.1 % Sodium 134 L (135-149) mmol/L Potassium 4.0 (3.6-5.1) mmol/L Chloride 99 (96-114) mmol/L Carbon Dioxide 23 (20-32) mmol/L Anion Gap 12 (7-15) mEq/L BUN 9 (5-24) mg/dL Creatinine 0.7 (0.5-1.5) mg/dL Estimated Creat Clear 109.59 Estimated GFR 122 ml/min Glucose 93 (60-115) mg/dL Calcium 9.0 (8.4-10.6) mg/dL Total Bilirubin 0.4 (0.1-1.5) mg/dL AST 18 (12-35) U/L ALT 14 (4-35) U/L Alkaline Phosphatase 72 (40-150) U/L Total Protein 7.5 (6.0-8.3) g/dL Albumin 4.2 (3.3-5.0) g/dL Lipase 36 (23-300) U/L Urine Color Yellow (Yellow) Urine Appearance Clear (Clear) Urine pH 7.5 (5.0-8.5) Ur Specific [place] 1.020 (1.000-1.030) Urine Protein Negative (Negative) Urine Glucose (UA) Negative (Negative) Urine Ketones Negative (Negative) Urine Blood Negative (Negative) Urine Nitrite Negative (Negative) Urine Bilirubin Negative (Negative) Urine Urobilinogen 0.2 (0.2-1.0) Ur Leukocyte Esterase Trace A (Negative) Urine RBC 0-2 (0-2) Urine WBC 0-2 (0-5) Ur Squamous Epith Cells Few (None-Few) Urine Bacteria Few A (None) <Matt Graves MD - Last Filed: 03/03/25 00:37> Lab Results 03/02/25 03/02/25 Range/Units 07:32 08:14 WBC 7.14 (4.50-11.00) K/uL RBC 4.28 (4.00-5.20) m/uL Hgb 12.8 (12.0-16.0) gm/dL Hct 40.0 (33.0-51.0) % MCV 94 (80-100) fL MCH 30 (26-34) pg MCHC 32 (32-36) gm/dL RDW Coeff of Gabo 12.4 (11.5-15.5) % Plt Count 202 (140-440) K/uL Neut % (Auto) 75.8 H (42.0-72.0) % Lymph % (Auto) 17.2 L (20-44) % [place] % (Auto) 5.7 (0.0-11.0) % Eos % (Auto) 1.1 (0.0-7.0) % Baso % (Auto) 0.1 (0.0-3.0) % Neut # (Auto) 5.40 (1.7-7.0) K/uL Lymph # (Auto) 1.20 (0.90-2.90) K/uL [place] # (Auto) 0.40 (0.00-0.90) K/UL Eos # (Auto) 0.08 (0.00-0.50) K/uL Baso # (Auto) 0.01 (0.00-0.30) K/uL Abs Immat Gran (auto) 0.01 (0.00-0.30) K/uL Imm/Tot Granulo (auto) 0.1 % Sodium 134 L (135-149) mmol/L Potassium 4.0 (3.6-5.1) mmol/L Chloride 99 (96-114) mmol/L Carbon Dioxide 23 (20-32) mmol/L Anion Gap 12 (7-15) mEq/L BUN 9 (5-24) mg/dL Creatinine 0.7 (0.5-1.5) mg/dL Estimated Creat Clear 109.59 Estimated GFR 122 ml/min Glucose 93 (60-115) mg/dL Calcium 9.0 (8.4-10.6) mg/dL Total Bilirubin 0.4 (0.1-1.5) mg/dL AST 18 (12-35) U/L ALT 14 (4-35) U/L Alkaline Phosphatase 72 (40-150) U/L Total Protein 7.5 (6.0-8.3) g/dL Albumin 4.2 (3.3-5.0) g/dL Lipase 36 (23-300) U/L Urine Color Yellow (Yellow) Urine Appearance Clear (Clear) Urine pH 7.5 (5.0-8.5) Ur Specific [place] 1.020 (1.000-1.030) Urine Protein Negative (Negative) Urine Glucose (UA) Negative (Negative) Urine Ketones Negative (Negative) Urine Blood Negative (Negative) Urine Nitrite Negative (Negative) Urine Bilirubin Negative (Negative) Urine Urobilinogen 0.2 (0.2-1.0) Ur Leukocyte Esterase Trace A (Negative) Urine RBC 0-2 (0-2) Urine WBC 0-2 (0-5) Ur Squamous Epith Cells Few (None-Few) Urine Bacteria Few A (None) <Gloria Murillo MD - Last Filed: 03/02/25 11:11> Discharge Plan Discharge Clinical Impression: Nausea and vomiting during prior to 22 weeks gestation <Matt Graves MD - Last Filed: 03/03/25 00:37> Patient Disposition: Home, Self-Care <Matt Graves MD - Last Filed: 03/03/25 00:37> Condition: Stable <Matt Graves MD - Last Filed: 03/03/25 00:37> Instructions: Nausea and Vomiting in (ED) <Matt Graves MD - Last Filed: 03/03/25 00:37> Additional Instructions: Recommend continuing with the B6 and Unisom baseline. Will send in Compazine for you to try to use instead as this seemed to help you better in the ER. Keep your appointment for Wednesday. If you feel you are worsening, not urinating at least once every 6-8 hours due to inability to get oral fluids in, seek re-evaluation over the weekend for possible further IV fluids. <Matt Graves MD - Last Filed: 03/03/25 00:37> Activity Level: Activity as Tolerated <Matt Graves MD - Last Filed: 03/03/25 00:37> Activity as Tolerated <Gloria Murillo MD - Last Filed: 03/02/25 11:11> Prescriptions: New prochlorperazine maleate [Compazine] 5 mg tablet 5 mg PO QID PRNQty: 10 0RF No Action [id number]-[id number]-BW-omega 3 fatty no.1 27-1-300 mg capsule PO omeprazole 20 mg capsule,delayed release(DR/EC) 20 mg PO QDAY Qty: 90 0RF metoclopramide HCl [Reglan] 10 mg tablet 10 mg PO Q6H PRN (Reason: nausea and vomiting) Qty: 30 0RF Rx Instructions: may take 5-10mg of Reglan every 6-8 hours as needed. <Matt Graves MD - Last Filed: 03/03/25 00:37> Follow Up/Referrals: Provider,Not a Local [Primary Care Provider, Family Practice] <Matt Graves MD - Last Filed: 03/03/25 00:37> Stand Alone Forms: MyHealth Info Instructions <Matt Graves MD - Last Filed: 03/03/25 00:37>
[2025-03-02] MEDS: ONDANSETRON 2 MG/ML inj 4 MG IVP (08:16)
[2025-03-02 08:32] LABS: Hematocrit* 40.0 % (33.0-51.0); Hemoglobin* 12.8 gm/dL (12.0-16.0); Immature Granulocytes Abs Auto 0.01 K/uL (0.00-0.30); Immature Granulocytes Pct Auto 0.1 %; Lymphocytes Absolute Auto 1.20 K/uL (0.90-2.90); Mean Corpuscular HGB Conc 32 gm/dL (32-36); Mean Corpuscular Hemoglobin 30 pg (26-34); Mean Corpuscular Volume 94 fL (80-100); RDW Coefficient of Variation % 12.4 % (11.5-15.5); Red Blood Count* 4.28 m/uL (4.00-5.20); Slide Review Reflex No; White Blood Count* 7.14 K/uL (4.50-11.00)
[2025-03-02 09:14] LABS: Albumin* 4.2 g/dL (3.3-5.0); Anion Gap 12 mEq/L (7-15); Chloride* 99 mmol/L (96-114); Potassium* 4.0 mmol/L (3.6-5.1); Sodium* 134 mmol/L (135-149)
[2025-03-02 09:16] LABS: Blood Urea Nitrogen* 9 mg/dL (5-24); Creatinine* 0.7 mg/dL (0.5-1.5); Est. Creatinine Clearance* 109.59; Estimated Glomerular Filt Rate 122 ml/min
[2025-03-02 09:17] LABS: Alanine Aminotransferase* 14 U/L (4-35); Alkaline Phosphatase* 72 U/L (40-150); Aspartate Amino Transferase* 18 U/L (12-35); Bilirubin Total* 0.4 mg/dL (0.1-1.5); Calcium* 9.0 mg/dL (8.4-10.6); Carbon Dioxide* 23 mmol/L (20-32); Glucose* 93 mg/dL (60-115); Total Protein* 7.5 g/dL (6.0-8.3)
[2025-03-02] MEDS: LACTATED RINGERS 1000 ML 1,000 ML IV (10:02)
[2025-03-02 10:07] LABS: Appearance Urine Clear (Clear)
[2025-03-02] MEDS: PROCHLORPERAZINE 5 MG/ML VIAL IV (10:11)
[2025-03-02 11:21] VITALS: BP 131/90; PULSE 89; RESP 18; O2SAT 98
== END 2025-03-02 11:26 | disposition home or self-care (01) ==
PROVIDERS: Family Medicine; Emergency Provider Internal Medicine
DX: R11.2 Nausea with vomiting, unspecified (principal); Z3A.08 8 weeks gestation of pregnancy
CPT/HCPCS: 36415; 80053; 81001; 83690; 85025; 87086; 96361; 96374; 96375; 99283; 99284; J0780; J2405; J7030; J7120

== ENCOUNTER 2025-03-05 12:08 | Outpatient (CLI) | payer BC, SELFPAY ==
--- NOTE | 2025-03-05 13:00 | CRLHL7_ITS ---
For Patients: As a result of the Century Cures Act, medical imaging exams and procedure reports are released immediately into your electronic medical record. You may view this report before your referring provider. If you have questions, please contact your health care provider. INDICATION: Dating and viability. TECHNIQUE: Ultrasound pelvis transvaginal for better assessment or to better visualize the endometrium. COMPARISON: 02/09/2025. FINDINGS: Single living intrauterine with crown-rump length of 2.1 cm corresponding to 8 weeks 5 days. heart rate is 176 beats per minute. Normal-appearing gestational sac and yolk sac. Estimated date of delivery is 10/10/2025. Uterus as imaged otherwise unremarkable. Right ovary is 2.6 x 2.1 x 1.8 cm and contains a 1.7 cm corpus luteum cyst. Left ovary is 2.3 x 1.6 x 1.8 cm and is within normal limits. No free fluid evident. IMPRESSION: Single living intrauterine with estimated age of 8 weeks 5 days. Dictated by Thein Fischer MD @ 03/05/2025 2:48:23 PM Dictated by: Thien Fischer MD @ 03/05/2025 14:48:36 (Electronically Signed)
== END 2025-03-05 12:09 | disposition home or self-care (01) ==
LOC: US 12:10
PROVIDERS: Visit Provider Advanced Practice Midwife
DX: Z34.91 Encounter for supervision of normal pregnancy, unspecified, first trimester (principal); Z3A.08 8 weeks gestation of pregnancy
CPT/HCPCS: 76817; 83021; 86592; 86703; 86704; 86706; 86762; 86787; 86803; 86850; 86900; 86901; 87086; 87340; 87491; 87591

== ENCOUNTER 2025-04-06 09:29 | Outpatient (CLI) | payer BC, SELFPAY ==
[2025-04-06 12:06] LABS: Bacterial Vaginosis* Negative (Negative); Candida glab/krus NOT DETECTED (No Detected)
== END 2025-04-06 09:30 | disposition home or self-care (01) ==
LOC: NFLDREF 09:29
PROVIDERS: Visit Provider Advanced Practice Midwife
DX: N89.8 Other specified noninflammatory disorders of vagina (principal)
CPT/HCPCS: 81513; 87481; 87661

== ENCOUNTER 2025-04-09 14:32 | Emergency (ER) | payer BC, SELFPAY ==
--- OUTSIDE RECORDS SUMMARY | 2025-03-28 07:56 | XMS_ITS | Encounter Summary ---
Author Organization [facility] Address [address] [place] [address] Care Team Providers Care Pulley Man Name Role Phone Elsewhere, Pcp Primary Care Provider Unavailabl e Reason for Visit * ReasonCommentsAbdominal CrampingPatient presents with lower abd. cramping that began after falling, onto her butt, outside her home around 0700 on 03/28/25.Vomiting During PregnancyPatient also states that she had been planning to arrive to the ER due to nausea and vomiting; this is a known complication with her . Patient reports that she is out of her antiemetic medication. Encounter Details DateTypeDepartmentCare Team (Latest Contact Info)Gnoxluadxwk31/10/2025 7:56 AM CHANGE MANAGEMENT ANALYST - 03/28/2025 9:40 AM CSTEmergency [facility] [address] [place] [phone] Keyon Juarez M.D. [address] [place] [phone] Abdominal Pain (Primary Dx); History Of Falling; 12 Weeks Gestation (HCC); Nausea And Vomiting Discharge Disposition: Home or Self Care Social History Tobacco UseTypesPacks/DayYears UsedDateSmoking Tobacco: NeverSmokeless Tobacco: NeverAlcohol UseStandard Drinks/WeekCommentsNot Currently0 (1 standard drink = 0.6 oz pure alcohol)RarelyCommentsYesSex and Gender InformationValueDate RecordedSex Assigned at BirthNot on fileLegal BgeQtzmpk28/01/2017 6:45 PM CDT Gender IdentityNot on fileSexual OrientationNot on filedocumented as of this encounter Last Filed Vital Signs Vital SignReadingTime TakenCommentsBlood Pressure--Nddvk559303/28/2025 8:08 AM CHANGE MANAGEMENT ANALYST Temperature--Respiratory Rate--Oxygen Wlqpizgyng49%03/28/2025 8:08 AM CSTInhaled Oxygen Concentration--Weight--Axjpyl752.1 cm (5' 5)03/28/2025 8:12 AM CSTBody Mass Index--documented in this encounter Functional Status * Vital SignsQuestionAnswerDate of AssessmentAuthorRichmond Agitation Sedation Scale (RASS) 9:41 AM Dusty Merchant R.N. * ED Fall Risk Assessment ToolQuestionAnswerDate of AssessmentAuthorHistory of Falling in Last Three Months Including Since Ipqfqwwtk735/10/2025 8:14 AM Dusty Fragoso R.N.Confusion or Rbbtywnoijsuve010/10/2025 8:14 AM CHANGE MANAGEMENT ANALYST Dusty Lofton R.N.Intoxicated or Wwhrfcc058 8:14 AM Dusty Merchant R.N.Impaired Ahkd623 8:14 AM Dusty Merchant R.N. Mobility Assist Device Qyse553 8:14 AM Dusty Merchant R.N. Altered Cnzipafwqmw443/10/2025 8:14 AM Dusty Merchant R.N.Fall Risk Luais999 8:14 AM Dusty Merchant R.N. * Abuse IndicatorsQuestionAnswerDate of AssessmentAuthorIs there a history, concern, or exposure to physical, emotional, sexual, financial abuse, neglect or domestic violence?No03/28/2025 8:14 AM Dusty Merchant R.N.Information VndqpdDvobgab21/10/2025 8:14 AM Dusty Merchant R.N. * Pain AssessmentQuestionAnswerDate of AssessmentAuthorPain LocationAbdomen 03/28/2025 9:41 AM Dusty Merchant R.N.Pain Orientation Lower;Mid;Left;Right03/28/2025 9:41 AM Dusty Merchant RJean ClaudeN.Pain InterventionsRepositioned;Rest03/28/2025 9:41 AM Dusty Merchant RLindsey.Pain MavtqxbgkgmAewioutu60/10/2025 9:41 AM Dusty Merchant RJean ClaudeN.Pain Onset Sgirxp4303/28/2025 9:41 AM Dusty Merchant RLindsey.Pain Frequency Constant/towboksemj28/10/2025 9:41 AM Dusty Merchant RJean ClaudeN.Pain TypeAcute pain03/28/2025 9:41 AM Dusty Merchant RLindsey.Clinical ProgressionNot juvesnd5403/28/2025 9:41 AM Dusty Merchant R.N.Pain Score5 - Moderate pain 03/28/2025 9:41 AM Dusty Merchant R.N. * Fall Risk Scale and AssessmentsQuestionAnswerDate of AssessmentAuthorFall Risk ScaleED Fall Risk Assessment Tool03/28/2025 8:14 AM Dusty Merchant R.N. documented as of this encounter Discharge Instructions * Discharge Instructions* Keyon Juarez M.D. - 03/28/2025 9:30 AM CHANGE MANAGEMENT ANALYST Trauma Discharge Instructions Your Emergency Department Visit You came to the emergency department today after a fall. You are approximately 12 weeks . We examined you and your baby, and both are doing well. Your baby's heartbeat is normal, and you haveno signs of injury to your abdomen or . What Happens Next While most women who experience minor injuries like yours do well, it is important to watch for signs of complications over the next 48 hours. Even though everything looks normal now, some complications from trauma can develop hours or even days later.[1][2] When to Return to the Emergency Department Immediately Come back to the emergency department right away or call 911 if you experience any of the following: - Vaginal bleeding of any amount (even light spotting) - Leaking fluid from your vagina (this could be amniotic fluid) - Abdominal pain or cramping that doesn't go away or gets worse - Regular contractions (your belly getting tight and hard repeatedly) - Severe abdominal tenderness when you touch your belly - Decreased or absent baby movement (once you start feeling movement regularly, usually after 18-20weeks) - Dizziness, lightheadedness, or fainting - Severe headache - Shoulder pain (this can be a sign of internal bleeding) - Any other symptoms that concern you Important Information About Placental Abruption One of the most serious complications after trauma in is called placental abruption. Thishappens when the placenta (the organ that feeds your baby) separates from the wall of your uterus. This can occur even after minor injuries and may develop within the first 48 hours after your fall. Warning signs include vaginal bleeding, abdominal pain, and contractions.[1][2] Follow-Up Care - Contact your finance and administration manager within 24-48 hours to inform them about your fall and this emergency department visit - Keep all scheduled appointments - If you are Rh-negative blood type, you may need a medication called RhoGAM. Discuss this with your finance and administration manager.[2] Activity Restrictions - Rest as needed over the next few days - Avoid strenuous activities for 48 hours - Do not drive if you feel dizzy or unwell - Ask for help with heavy lifting or caring for other children if needed General Safety Falls are common during due to changes in your balance and center of gravity. To prevent future falls: - Wear flat, non-slip shoes - Use handrails on stairs - Avoid rushing - Keep walkways clear of clutter - Use nightlights to see clearly at night Questions or Concerns If you have any questions or concerns that are not emergencies, contact your finance and administration manager's office.They know your history and can provide guidance specific to your situation. Remember: The best way to protect your baby is to take care of yourself. When in doubt, it is always better to be checked again rather than wait. References Trauma in : Assessment, Management, and Prevention. [place], Mark ARCE. German FamilyPhysician. 2014;90(10):717-22. Practice Management Guidelines for the Diagnosis and Management of Injury in the Patient: The [facility] Practice Management Guidelines Work Group. Solomon RD, Daniele WC, Edin TV, et al. The Journal of Trauma. 2010;69(1):211-4. doi:10.1097/TA.[id number]. GE MANAGEMENT ANALYST GE MANAGEMENT ANALYST documented in this encounter Medications at Time of Discharge MedicationSigDispense QuantityRefillsLast FilledStart DateEnd Date metoclopramide (Reglan) 10 mg tablet TAKE ONE TABLET BY MOUTH EVERY 6 HOURS NEEDED FOR NAUSEA AND VOMITING. MAY TAKE 1-2 TABLETS EVERY 6 TO 8 HOURS NEEDED.02/28/2025 ondansetron (Zofran) 4 mg tablet Take 4 mg by mouth every 8 (eight) hours as needed for nausea or vomiting. acetaminophen (TYLENOL) 500 mg tablet Take 1,000 mg by mouth every 6 (six) hours as needed for pain. ARIPiprazole (ABILIFY) 5 mg tablet Take 2.5 mg by mouth daily. cfzslgsclr-ssphevqbvjwee-jnli (Esgic) 50-325-40 mg per tablet Take 1 tablet by mouth 2 (two) times a day.12/29/2024 cloNIDine (CATAPRES) 0.2 mg tablet Take 0.2 mg by mouth at bedtime as needed. for sleep11/27/2022 cyclobenzaprine (FlexeriL) 5 mg tablet Take 5 mg by mouth at bedtime as needed for muscle spasms. dextroamphetamine-amphetamine (AdderalL) 30 mg tablet Take 30 mg [...] per tablet Take 1 tablet by mouth daily.02/27/2023 ondansetron ODT (Zofran-ODT) 4 mg disintegrating tablet Dissolve 1 tablet (4 mg total) in the mouth every 12 (twelve) hours. 20 tablet 03/28/2025documented as of this encounter ED Notes * Keyon Juarez M.D. - 03/28/2025 8:18 AM CST Images from the original note were not included. Department of Emergency Medicine- [place] 03/29/2025 1:49 PM CHANGE MANAGEMENT ANALYST *Encounter labs and radiology results at the end of this note* The patient verbally consented to an audio recording of their visit to assist with the completion of documentation. Chief Complaint Patient presents with Abdominal Cramping Patient presents with lower abd. cramping that began after falling, onto her butt, outside her home around 0700 on 03/28/25. Vomiting During Patient also states that she had been planning to arrive to the ER due to nausea and vomiting; this is a known complication with her . Patient reports that she is out of her antiemetic medication. PCP: ELSEWHERE, PCP History of Present Illness Loyda Ireland is a 24 year old female who presents with a fall and concerns about her . Trauma from fall - Slipped on ice outside her house, resulting in a fall on a level surface at the top step - Caught herself and did not fall down the steps - No head injury or loss of consciousness - No lightheadedness or other unusual symptoms at the time of the fall status and obstetric history - Currently 12 weeks () - History of previous miscarriage before ten weeks - Has two living children Abdominal symptoms post-fall - Dull, intermittent cramping in the lower abdomen following the fall - Cramping is not rhythmic or contraction-like - No vaginal bleeding, unusual discharge, or gush of fluid Nausea and vomiting in - Severe nausea during current - Currently taking Reglan for symptom control - Previously tried Unisom and vitamin B6 without benefit; both discontinued Physical Exam VITALS: P- 150 GENERAL: Alert, cooperative, well developed, no acute distress. HEENT: Normocephalic, normal oropharynx, moist mucous membranes. CHEST: Clear to auscultation bilaterally, no wheezes, rhonchi, or crackles. CARDIOVASCULAR: Normal heart rate and rhythm, S1 and S2 normal without murmurs. ABDOMEN: Soft, non-tender, non-distended, without organomegaly, normal bowel sounds. Uterus is not palpable. EXTREMITIES: No cyanosis or edema. NEUROLOGICAL: Cranial nerves grossly intact, moves all extremities without gross motor or sensory deficit. heart rate 150 bpm, normal. Medical Decision Making 24-year-old female, at approximately 12 weeks gestation, presented after a slip and fall on icy steps with subsequent mild, intermittent lower abdominal cramping. She denied head trauma, loss ofconsciousness, vaginal bleeding, or discharge. Exam revealed reassuring heart tones at 150 bpm and no significant abdominal tenderness. Past medical history notable for severe nausea in , currently managed with Reglan. Differential diagnosis includes, but is not limited to: - Threatened miscarriage: Considered due to post-fall cramping, but absence of vaginal bleeding, reassuring heart rate, and lack of significant trauma make this unlikely. - Placental abruption: Considered in the context of trauma during , but no vaginal bleeding, significant pain, or uterine tenderness were present, and heart rate was reassuring. - Nausea and vomiting of (hyperemesis gravidarum): Persistent severe nausea consistent with prior pregnancies, currently managed with antiemetics; no new concerning features identified. First trimester after minor trauma - Monitored for 3 hours for onset of cramping or other symptoms - Provided reassurance regarding low risk to from fall - Provided discharge instructions on warning signs including bleeding and cramping Nausea and vomiting of - Prescribed Zofran for ongoing nausea - Provided instructions regarding medication use Final Diagnoses: as of 03/29/25 1349 Abdominal Pain - Minor cramping after a fall History Of Falling 12 Weeks Gestation ([facility]) Nausea And Vomiting - In early Vitals: 03/28/25 0808 03/28/25 0812 03/28/25 0941 BP: 139/89 Pulse: 82 73 SpO2: 96% 98% Height: 165.1 cm Medications ondansetron ODT disintegrating tablet 4 mg (Zofran-ODT) (4 mg oral Given 03/28/25810) Or ondansetron (PF) injection 4 mg (Zofran) ( intravenous See Alternative 03/28/25810) Clinical Impression: Final diagnoses: [R10.9] Abdominal Pain - Minor cramping after a fall [Z91.81] History Of Falling [Z3A.12] 12 Weeks Gestation (HCC) [R11.2] Nausea And Vomiting - In early Disposition: Discharge ED Prescriptions Medication Sig Dispense Start Date End Date Auth. Provider ondansetron ODT (Zofran-ODT) 4 mg disintegrating tablet Dissolve 1 tablet (4 mg total) in the mouthevery 12 (twelve) hours. 20 tablet 03/28/2025 -- Keyon Juarez M.D. Labs Reviewed - No data to display No orders to display Keyon Juarez M.D. 03/29/25 1349 GE MANAGEMENT ANALYST documented in this encounter Plan of Treatment Not on file documented as of this encounter Visit Diagnoses Diagnosis Abdominal Pain- Primary History Of Falling 12 Weeks Gestation ([facility]) Nausea And Vomiting documented in this encounter Administered Medications Medication OrderMAR ActionAction DateDoseRateSite ondansetron ODT disintegrating tablet 4 mg (Zofran-ODT) 4 mg, oral, Once as needed, nausea, Starting on Wed03/28/25 at 0803, For 1 dose, Select if no IV access. When splitting ODT at bedside, handle with gloves and a pill splitter to prevent moisture contact. Given03/28/2025 8:11 AM CST4 mgdocumented in this encounter Active and Recently Administered Medications Times are shown in CHANGE MANAGEMENT ANALYST.Medication Order/ ondansetron ODT disintegrating tablet 4 mg (Zofran-ODT) (COMPLETED)(Linked Group 1) 4 mg, oral, Once as needed, nausea, Starting on Wed03/28/25 at 0803, For 1 dose, Select if no IV access. When splitting ODT at bedside, handle with gloves and a pill splitter to prevent moisture contact. * 0811 (Given - Provider: Dusty Lofton R.N.) Order Group 1: ondansetron ODT disintegrating tablet 4 mg (Zofran-ODT) (COMPLETED)Jump to med 4 mg, oral, Once as needed, nausea, Starting on Wed03/28/25 at 0803, For 1 dose, Select if no IV access. When splitting ODT at bedside, handle with gloves and a pill splitter to prevent moisture contact. Or ondansetron (PF) injection 4 mg (Zofran) (COMPLETED) 4 mg, intravenous, Once as needed, nausea, Starting on Wed03/28/25 at 0803, For 1 dose, Select if IV access obtained. documented in this encounter Care Teams Team MemberRelationshipSpecialtyStart DateEnd Date Elsewhere, Pcp PCP - GeneralInternal Medicine08/31/23documented as of this encounter
--- OUTSIDE RECORDS SUMMARY | 2025-04-09 14:39 | XMS_ITS ---
Author Organization [facility] ction (ClinicalSummary Clone) Address Unknown Care Team Providers Care Publicity Director Name Role Phone Unavailable Primary Care Physician Unavailab le Results * [UNITY] CARRIER SCREEN Performed by: ContaAzul Component Value Range Date Sickle Cell Disease/Beta-Thalassemia/Hemoglobino pathies carrier screen NEGATIVE 03/21/2025 06:27 pm UTCAlpha-Thalassemia carrier enmjdlWHUZPHME52/03/2025 06:27 pm UTCCystic Fibrosis carrier ykbjljVQIDPVHG51/03/2025 06:27 pm UTCSpinal Muscular Atrophy carrier screenNEGATIVE 2 SMN1 copies, SNP not vujmlkw6003/21/2025 06:27 pm UTCFor detailed report, see PDFSee PDF03/21/2025 06:27 pm UTC 03/21/2025 06:27 pm UTC Social History Observation Value Start Date End Date
--- OUTSIDE RECORDS SUMMARY | 2025-04-09 14:39 | XMS_ITS | Clinical Summary ---
Author Organization [employer] [facility] Address [address] [place] [address] Care Team Providers Care Laborer Sawmill Name Role Phone Pcp, No Primary Care Provider Unavailabl e Allergies No known active allergies Medications MedicationSigDispense QuantityRefillsLast FilledStart DateEnd DateStatus dextroamphetamine-amphetamine (ADDERALL XR) 30 mg Extended-Release capsule Take 30 mg by mouth. Daily prn14Active levonorgestrel (Mirena) 21 mcg/24 hours (8 yrs) 52 mg intrauterine device (IUD) Inject 1 Device intrauterine one time.Active Social History Tobacco UseTypesPacks/DayYears UsedDateSmoking Tobacco: NeverSmokeless Tobacco: Never Tobacco Cessation:Counseling Given: No Alcohol UseStandard Drinks/WeekCommentsNot Currently0 (1 standard drink = 0.6 oz pure alcohol)Interpersonal SafetyAnswerDate RecordedAre you being hit, kicked, pushed or yelled at (see row info)?No05/18/2024Interpersonal Safety Abuse 12 - 18Not on file05/18/2024Interpersonal Safety Ambulatory VulnerabilityNot on file 05/18/2024CommentsNoSex and Gender InformationValueDate RecordedSex Assigned at BirthNot on fileLegal EonSkqthj54/09/2020 8:25 AM CDTGender Identity Not on fileSexual OrientationNot on file Obstetrics History GravidaParaTermPretermABIABSABEctopicMultipleLivingLive Wvmdsr8IbnhAqufxmcFL Total LaborLabor/2nd/8cpRlodhqOwuInroYmqlNWMMhpY3E8HftaFkhtMpjcqnz Last Filed Vital Signs Vital SignReadingTime TakenCommentsBlood Esbtfgwa082/8201 9:04 AM DIET AID Hxfvw6451/30/2025 9:04 AM PZRVdmyiisfmkc78 ??C (98.6 ??F)05/18/2024 9:12 AM DIET AID Respiratory Zynl114205/18/2024 9:04 AM CSTOxygen Wevuibiprm97%05/18/2024 9:04 AM CSTInhaled Oxygen Concentration--Vhcwat989.4 kg (239 lb)05/18/2024 9:04 AM DIET AID Zwwoce415.1 cm (5' 5)05/18/2024 9:04 AM CSTBody Mass Index39.77005/18/2024 9:04 AM DIET AID Plan of Treatment Not on file Care Teams Team MemberRelationshipSpecialtyStart DateEnd Date Pcp, No PCP - Zyeyxde07/9/20
--- OUTSIDE RECORDS SUMMARY | 2025-04-09 14:39 | XMS_ITS | Encounter Summary ---
Author Organization [facility] Address [address] [place] [address] Care Team Providers Care Fisher Dip Net Name Role Phone Elsewhere, Pcp Primary Care Provider Unavailabl e Encounter Details DateTypeDepartmentCare Team (Latest Contact Info)Bmfdirtaqmt79/21/2025Results Follow-Up [place] [facility] [address] [place] [phone] Dominga Chau P.A.-C., P.A. [address] [place] [phone] Bacterial Culture, Aerobic + Susceptibility, Urine Social History Tobacco UseTypesPacks/DayYears UsedDateSmoking Tobacco: NeverSmokeless Tobacco: NeverAlcohol UseStandard Drinks/WeekCommentsNot Currently0 (1 standard drink = 0.6 oz pure alcohol)RarelyCommentsYesSex and Gender InformationValueDate RecordedSex Assigned at BirthNot on fileLegal XcuEfsucm09/01/2017 6:45 PM CDT Gender IdentityNot on fileSexual OrientationNot on filedocumented as of this encounter Plan of Treatment Not on file documented as of this encounter Visit Diagnoses Not on filedocumented in this encounter Care Teams Team MemberRelationshipSpecialtyStart DateEnd Date Elsewhere, Pcp PCP - GeneralInternal Medicine08/31/23documented as of this encounter
--- OUTSIDE RECORDS SUMMARY | 2025-04-09 14:39 | XMS_ITS | Clinical Summary ---
Author Organization [facility] Address [address] [place] [address] Care Team Providers Care Problem Manager Name Role Phone Elsewhere, Pcp Primary Care Provider Unavailabl e Source Comments Patient records contain information from all sites at [facility]. For routine questions regarding patient records, call [phone] during business hours, M-F 8:00 AM - 5:00 PM Central Time. Record requests for emergency care only can be directed to [phone] at any time.[facility] Allergies No known active allergies Medications MedicationSigDispense QuantityRefillsLast FilledStart DateEnd DateStatus acetaminophen (TYLENOL) 500 mg tablet Take 1,000 mg by mouth every 6 (six) hours as needed for pain.Active ibuprofen (ADVIL,MOTRIN) 200 mg capsule Take 800 mg by mouth every 6 (six) hours as needed for pain.Active cloNIDine (CATAPRES) 0.2 mg tablet Take 0.2 mg by mouth at bedtime as needed. for sleep11/27/2022ctive ARIPiprazole (ABILIFY) 5 mg tablet Take 2.5 mg by mouth daily.Active Lo-Zumandimine, 28, 3-0.02 mg per tablet Take 1 tablet by mouth daily.02/27/2023ctive dextroamphetamine-amphetamine (AdderalL) 30 mg tablet Take 30 mg by mouth daily.Active escitalopram (Lexapro) 20 mg tablet Take 20 mg by mouth daily.Active cyclobenzaprine (FlexeriL) 5 mg tablet Take 5 mg by mouth at bedtime as needed for muscle spasms.Active ondansetron (Zofran) 4 mg tablet Take 4 mg by mouth every 8 (eight) hours as needed for nausea or vomiting.Active hbhdmwdknm-eypokqwstpkej-jnty (Esgic) 50-325-40 mg per tablet Take 1 tablet by mouth 2 (two) times a day.5Active levonorgestreL (Mirena) 21 mcg/24hr (up to 8 yrs) 52 mg IUD 1 Device by intrauterine route.Active metoclopramide (Reglan) 10 mg tablet TAKE ONE TABLET BY MOUTH EVERY 6 HOURS NEEDED FOR NAUSEA AND VOMITING. MAY TAKE 1-2 TABLETS EVERY 6 TO 8 HOURS NEEDED.5Active ondansetron ODT (Zofran-ODT) 4 mg disintegrating tablet Dissolve 1 tablet (4 mg total) in the mouth every 12 (twelve) hours. 20 tablet 5Active Active Problems CommentsYes No known active problems Encounters DateTypeDepartmentCare UhqpCovtwcyfloa49/10/2025 7:56 AM TANNING CONSULTANT - 03/28/2025 9:40 AM CSTEmergency [facility] [address] [place] [address] [phone] Keyon Juarez M.D. Abdominal Pain (Primary Dx); History Of Falling; 12 Weeks Gestation (HCC); Nausea And Vomiting Discharge Disposition: Home or Self Care02/06/2025Results Follow-Up [facility] [address] [place] [phone] Dominga Chau P.A.-C., P.A. Bacterial Culture, Aerobic + Susceptibility, Urine02/05/2025 6:20 PM CDT - 02/05/2025 8:42 PM CDTEmergency [facility] [address] [place] [address] [phone] Michelle Esteban APRN, C.N.P. Dysuria (Primary Dx) Discharge Disposition: Home or Self Care02/01/2025Results Follow-Up Urgent [facility] in [place], [place] [address] [place] [phone] Urbano Torrez P.A.-C., P.A. Bacterial Culture, Aerobic + Susceptibility, Urine01/30/2025 4:45 PM CDT - 01/30/2025 6:28 PM CDTEmergency [facility] [address] [place] [phone] Michelle Esteban APRN CJean ClaudeNJean ClaudeP. Nausea And Vomiting (Primary Dx) Discharge Disposition: Home or Self Carefrom Last 3 Months Social History Tobacco UseTypesPacks/DayYears UsedDateSmoking Tobacco: NeverSmokeless Tobacco: Never Tobacco Cessation:Counseling Given: Not Answered Alcohol UseStandard Drinks/WeekCommentsNot Currently0 (1 standard drink = 0.6 oz pure alcohol)RarelyCommentsYesSex and Gender InformationValueDate RecordedSex Assigned at BirthNot on fileLegal UqfWqhhza99/01/2017 6:45 PM CDT Gender IdentityNot on fileSexual OrientationNot on file Last Filed Vital Signs Vital SignReadingTime TakenCommentsBlood Ouixzyuq882/8903/28/2025 9:41 AM TANNING CONSULTANT Jgltc008503/28/2025 9:41 AM JPRCqzmzinknjf18 ??C (98.6 ??F)02/05/2025 5:47 PM CDT Respiratory Msah8014 5:47 PM CDTOxygen Bufjghavgo07%03/28/2025 9:41 AM CSTInhaled Oxygen Concentration--Vbxwyo493 kg (245 lb 9.6 oz)02/05/2025 5:51 PM WGPHmfuhy503.1 cm (5' 5)03/28/2025 8:12 AM CSTBody Mass Index40.8701/30/2025 4:16 PM CDT Plan of Treatment Health MaintenanceDue DateLast DoneCommentsCervical/Vaginal Cancer Screening 1998HIV Ztnhpewef1998Hepatitis C Qqkscepbr1998Depression Screening (Annual PHQ-2)5COVID-19 Vaccine ( season) /, 07/13/2023Influenza Vaccine (#1), 03/08/2003HPV Vaccines (1 - 3-dose SCDM series)2025Glucose Test for Med Uwxlowzapw13/30/43216705/18/2024, 08/31/2023, 11/01/2022, Additional history existsDTaP,Tdap,and Td Vaccines (7 - Td or Tdap), 12/15/2015, 07/23/1999, Additional history existsRSV vaccine - (32-36 weeks) or 50+ years (1 - 1-dose 75+ series)2073Hepatitis B Vaccines Khaxkppct73/15/1999, 1998, 1998IPV EijbibhgTilsgmnbc31/05/2000, 04/21/1999, 1998, Additional history existsPneumococcal vaccine (0-49 years)Aged OutNo longer eligible based on patient's age to complete this topic Procedures Procedure NamePriorityDate/TimeAssociated DiagnosisCommentsPREGNANCY TEST, POCT, U (LAB)STAT1 5:55 PM CDT Dysuria HC URINALYSIS AUTO W LTVUIQQIG17/20/2025 5:55 PM CDT URINALYSIS WITH MICROSCOPIC IF INDICATED, USTAT1 5:55 PM CDT BACTERIAL CULTURE, AEROBIC + SUSC, UAMXRVUDA67/20/2025 5:55 PM CDT HC URINALYSIS AUTO W BPOAGJSKQ17/14/2025 4:25 PM CDT TEST, POCT, U (LAB)STAT1 4:25 PM CDT URINALYSIS WITH MICROSCOPIC IF INDICATED, USTAT1 4:25 PM CDT BACTERIAL CULTURE, AEROBIC + SUSC, NGSFWHFIY32/14/2025 4:25 PM CDT COMPREHENSIVE METABOLIC PANEL, S/PSTAT08/31/2023 7:24 AM CDT from Last 3 Months or Most Recently Relevant to Health Maintenance Results * (ABNORMAL) Urinalysis with Microscopic if Indicated: Urine, Midstream (02/05/2025 5:55 PM CDT) Only the most recent of2 resultswithin the time period is included. ComponentValueRef RangeTest MethodAnalysis TimePerformed AtPathologist Signature SourceUrine, Urine, Rdkdvkefg80/20/2025 6:02 PM CDTNPRGClarityClearClear 02/05/2025 6:05 PM ZNCDLIVVzyuhJxlswr09/20/2025 6:05 PM CDTNPRGComment: ----REFERENCE VALUE---- Colorless Yellow Mare NlzjnKijlxdoyEcfifkqs47/20/2025 6:05 PM FJSQWNDLazxmgtZsmkoghwZaclzqre74/20/2025 6:05 PM CDTNPRGLeukocyte EsteraseSmall(A)Tjthdyvm00/20/2025 6:05 PM CDTNPRG ProteinNegativemg/dL02/05/2025 6:05 PM CDTNPRGComment: ----REFERENCE VALUE---- Negative Trace GlucoseNegativeNegative mg/dL02/05/2025 6:05 PM CDTNPRGKetones, QI(U)Negative Negative mg/dL02/05/2025 6:05 PM NHHNOPVEferxphboJyytufsuFiicxwqx29/20/2025 6:05 PM CDTNPRGpH7.05.0 - 8.010 6:05 PM CDTNPRGSpecific Gravity1.0101.001 - 1.5412202/05/2025 6:05 PM CDTNPRGUrobilinogen0.20.2 - 1.0 mg/dL02/05/2025 6:05 PM CDTNPRGSpecimen (Source)Anatomical Location / LateralityCollection Method / VolumeCollection TimeReceived TimeUrine (Urine, Midstream)02/05/2025 5:55 PM CDT 02/05/2025 6:02 PM CDT Narrative Authorizing ProviderResult TypeResult StatusLonivan Woodard Carlito BARBER, C.N.P.LAB URINE ORDERABLESFinal ResultPerforming OrganizationAddressCity/State/ZIP CodePhone Number [facility] [address] [place] [address], [facility] [place] [address] [place] [address] * (ABNORMAL) Microscopic Manual (02/05/2025 5:55 PM CDT) Only the most recent of2 resultswithin the time period is included. ComponentValueRef RangeTest MethodAnalysis TimePerformed AtPathologist Signature White Blood Cells4-10/hpf02/05/2025 6:12 PM CDTNPRGComment: ----REFERENCE VALUE---- Males: 0-3 Females: 0-10 Unknown: 0-10 Red Blood CellsNone Seen0 - 2 /hpf02/05/2025 6:12 PM CDTNPRGSquamous CellsOcc-3 /hpf02/05/2025 6:12 PM CDTNPRGBacteriaPresent(A)None Seen02/05/2025 6:12 PM CDT NPRGSpecimen (Source)Anatomical Location / LateralityCollection Method / Volume Collection TimeReceived TdsdLyxsc73/20/2025 5:55 PM CDT1 6:02 PM CDT Narrative Authorizing ProviderResult TypeResult StatusNaylanegra Woodard Carlito BARBER, C.N.P.LAB URINE ORDERABLESFinal ResultPerforming OrganizationAddressCity/State/ZIP CodePhone Number [facility] [address] [place] [address], [facility] [place] [address] [place] [address] * Bacterial Culture, Aerobic + Susceptibility, Urine (02/05/2025 5:55 PM CDT) Only the most recent of2 resultswithin the time period is included. ComponentValueRef RangeTest MethodAnalysis TimePerformed AtPathologist Signature Urine CultureUrogenital microbiota, susceptibilities not performed per laboratory criteria. 02/06/2025 3:55 PM CDTMKTOSpecimen (Source)Anatomical Location / Laterality Collection Method / VolumeCollection TimeReceived TimeUrine (Urine, Midstream) 02/05/2025 5:55 PM CDT1 9:59 PM CDTComment:Specimen Source Site: Urine Narrative Authorizing ProviderResult TypeResult StatusMichelle Esteban APRN, C.N.P.LAB MICROBIOLOGY - GENERAL ORDERABLESFinal ResultPerforming OrganizationAddress City/State/ZIP CodePhone Number [facility] [address] [place] [address], [facility] [place]TO [facility] [place] [address] [place] [address] * (ABNORMAL) Test, POCT, Urine (Lab) (02/05/2025 5:55 PM CDT) Only the most recent of2 resultswithin the time period is included. ComponentValueRef RangeTest MethodAnalysis TimePerformed AtPathologist Signature Test, POCT, UPositive(A)02/05/2025 7:09 PM CDTNPRGSpecimen (Source) Anatomical Location / LateralityCollection Method / VolumeCollection Time Received TimeUrine (Urine, Midstream)02/05/2025 5:55 PM CDT1 7:01 PM CDT Narrative Authorizing ProviderResult TypeResult Antonio Esteban APRN, C.N.P.LAB POCT ORDERABLES - DEVICEFinal ResultPerforming OrganizationAddressMount St[facility]/State/ZIP Code Phone Number [facility] [address] [place] [address], [facility] [place] [address] [place] [address] * Comprehensive Metabolic Panel (08/31/2023 7:24 AM CDT)ComponentValueRef Range Test MethodAnalysis TimePerformed AtPathologist SignaturePotassium, P4.23.6 - 5.2 mmol/L08/31/2023 7:55 AM CDTNPRGSodium, G724770 - 145 mmol/L08/31/2023 7:55 AM CDTNPRGChloride, W08910 - 107 mmol/L08/31/2023 7:55 AM CDTNPRG Bicarbonate, P2622 - 29 mmol/L08/31/2023 7:56 AM CDTNPRGAnion Gap, P87 - 15 08/31/2023 7:55 AM CDTNPRGBUN (Blood Urea Nitrogen), P106 - 21 mg/dL08/31/2023 7:56 AM CDTNPRGCreatinine0.860.59 - 1.04 mg/dL08/31/2023 7:56 AM CDTNPRG Estimated GFR (eGFR)>90>=60 mL/min/BSA08/31/2023 7:56 AM CDTNPRGComment: Estimated GFR calculated using the 2020 CKD_EPI creatinine equation. Calcium, Total, P9.18.6 - 10.0 mg/dL08/31/2023 7:56 AM CDTNPRGGlucose, S75110 - 140 mg/dL08/31/2023 7:56 AM CDTNPRGProtein, Total, P6.66.3 - 7.9 g/dL08/31/2023 7:56 AM CDTNPRGAlbumin, P3.93.5 - 5.0 g/dL08/31/2023 7:56 AM CDTNPRGAspartate Aminotransferase (AST), P138 - 43 U/L08/31/2023 7:56 AM CDTNPRGAlkaline Phosphatase, P6635 - 104 U/L08/31/2023 7:56 AM CDTNPRGAlanine Aminotransferase (ALT), P137 - 45 U/L08/31/2023 7:56 AM CDTNPRGBilirubin, Total, P0.30.0 - 1.2 mg/dL08/31/2023 7:56 AM CDTNPRGSpecimen (Source)Anatomical Location / Laterality Collection Method / VolumeCollection TimeReceived TimeBlood (Blood, Venous) 08/31/2023 7:24 AM CDT08/31/2023 7:26 AM CDT Narrative Authorizing ProviderResult TypeResult StatusBarnat Juarez M.D.LAB BLOOD ADD-ON Final ResultPerforming OrganizationAddressCity/State/ZIP CodePhone Number [facility] [address] [place] [address], [facility] [place] [facility] [place] [address] from Last 3 Months or Most Recently Relevant to Health Maintenance Insurance * Guarantor: Loyda Ireland TypeRelation to PatientDate of PhoneBilling AddressPersonal/OorwmjAbpc2000 [address] [place] [phone] [place] [phone] Care Teams Team MemberRelationshipSpecialtyStart DateEnd Date Elsewhere, Pcp PCP - GeneralInternal Medicine08/31/23
--- OUTSIDE RECORDS SUMMARY | 2025-04-09 14:39 | XMS_ITS | Encounter Summary ---
Author Organization [facility] Address [address] [place] [address] Care Team Providers Care University President Name Role Phone Elsewhere, Pcp Primary Care Provider Unavailabl e Encounter Details DateTypeDepartmentCare Team (Latest Contact Info)Lurqhxchjos39/16/2025Results Follow-Up Urgent Care in [place], [place] [address] [place] [phone] Urbano Torrez, PMario., P.A. [address] [place] [phone] Bacterial Culture, Aerobic + Susceptibility, Urine Social History Tobacco UseTypesPacks/DayYears UsedDateSmoking Tobacco: NeverSmokeless Tobacco: NeverAlcohol UseStandard Drinks/WeekCommentsNot Currently0 (1 standard drink = 0.6 oz pure alcohol)RarelyCommentsUnknownSex and Gender InformationValue Date RecordedSex Assigned at BirthNot on fileLegal TsaMsekss69/01/2017 6:45 PM CDTGender IdentityNot on fileSexual OrientationNot on filedocumented as of this encounter Plan of Treatment Not on file documented as of this encounter Visit Diagnoses Not on filedocumented in this encounter Care Teams Team MemberRelationshipSpecialtyStart DateEnd Date Elsewhere, Pcp PCP - GeneralInternal Medicine08/31/23documented as of this encounter
--- OUTSIDE RECORDS SUMMARY | 2025-04-09 14:39 | XMS_ITS ---
Author Organization [facility] Source Produ ction (ClinicalSummary Clone) Address Unknown Care Team Providers Care Sys Dir Name Role Phone Unavailable Primary Care Physician Unavailab le Results * [[facility]ITY] ANEUPLOIDY NIPT Performed by: [employer] Component Value Range Date Fraction 3.2% 03/18/2025 10:17 pm UTCSex Chromosome AneuploidyNOT CABMRODP34/30/2025 10:17 pm UTCMonosomy XLOW RISK <1 in 10:17 pm UTCTrisomy 13LOW RISK <1 in 10:17 pm UTCTrisomy 18LOW RISK <1 in 10:17 pm UTCTrisomy 21LOW RISK <1 in 10:17 pm UTCFetal SexMALE 03/18/2025 10:17 pm UTCPregnancy RmaowdubeMFFHXOECA37/30/2025 10:17 pm UTCFor detailed report, see PDFSee PDF03/18/2025 10:17 pm UTC105/18/2024 10:17 pm UTC Social History Observation Value Start Date End Date
[2025-04-09 15:12] VITALS: BP 150/93; PULSE 102; RESP 20; TEMP 36.5; O2SAT 99; BMI 43.1
--- NOTE | 2025-04-09 15:42 | ED_ITS ---
HPI - General Time Seen by Provider: 15:42 Date Seen: 04/09/25 Chief complaint: Unspecified Complaint, Adult Stated complaint: Low bp HR high SOB 14 wk preg Time Seen by Provider: 04/09/25 15:39 Source: patient, RN notes reviewed and old records reviewed Mode of arrival: ambulatory Limitations: no limitations History of Present Illness HPI Narrative: This 25-year-old female with reported 13 week intrauterine is coming in with concerns of lightheadedness, headache, chest tightness, palpitations and low blood pressure that occurred suddenly while she was at work. Her blood pressure was 201/93 from a nurse whom checked her blood pressure work. Her pulse at work was 155. She did see black spots for a bit, no further visual changes. These were in both eyes. The nurse had her just rest. She is left with some frontal headache. She had sinus congestion for about the last 5 days, it is better now than what it was. She did do home negative COVID test. No respiratory symptoms now. Not short of breath, no chest pain. She does note that she had pain actually in the epigastric area and through the upper abdominal area. Outside of a placenta previa, she denies any complications with pregnancies. She has had no blood clots. Both of her parents are anticoagulated. Her dad had a blood clot in his leg. Her mom had something when she was young but they are both on blood thinners per her report. Her due date is 10/13/2025 from a reported LMP of 01/06/2025. She did have some early on nausea and vomiting and was treated with Reglan, Zofran and omeprazole. She did have early first-trimester ultrasound which was consistent with her LMP dates. Related Data Home Medications ?Medication ?Instructions ?Recorded ?Confirmed PAA-huhg-PE-omega 3 fatty no.1 27 cap PO 02/12/2503/19 mg-1 mg-300 mg capsule Previous Rx's ?Medication ?Instructions ?Recorded omeprazole 20 mg capsule,delayed 20 mg PO QDAY #90 cap s 02/28/25 release metoclopramide HCl 5 mg tablet 5 mg PO Q4-6H PRN nause a/vomiting 03/13/25 (Reglan) #60 tabs Allergies Allergy/AdvReac Type Severity Reaction Status Date / Time aripiprazole (From [facility]) AdvReac worse Verified 04/09/25 15:11 depression sertraline (From Zoloft) AdvReac anger Verified 04/09/25 15:11 Review of Systems Status of ROS: Reports: 6 or more systems reviewed and unremarkable except as noted in History and below [facility] Medical History (Updated 04/09/25 @ 17:45 by Gloria Murillo MD) Contraception management ?Z30.9 - Encounter for contraceptive management, unspecified (ICD-10) Overweight ?E66.3 - Overweight (ICD-10) HSV-1 infection ?B00.9 - Herpesviral infection, unspecified (ICD-10) History of chlamydia ?Z86.19 - Personal history of other infectious and parasitic diseases (ICD- 10) History of substance abuse ?F19.11 - Other psychoactive substance abuse, in remission (ICD-10) Anxiety ?F41.9 - Anxiety disorder, unspecified (ICD-10) GERD (gastroesophageal reflux disease) ?K21.9 - Gastro-esophageal reflux disease without esophagitis (ICD-10) Insomnia ?G47.00 - Insomnia, unspecified (ICD-10) History of seizure ?Z87.898 - Personal history of other specified conditions (ICD-10) Acne ?L70.9 - Acne, unspecified (ICD-10) Migraine without aura ?G43.009 - Migraine without aura, not intractable, without status migrainosus (ICD-10) History of abnormal cervical Pap smear ?Z87.42 - Personal history of other diseases of the female genital tract (ICD-10) PTSD (post-traumatic stress disorder) ?F43.10 - Post-traumatic stress disorder, unspecified (ICD-10) Depression ?F32.A - Depression, unspecified (ICD-10) Surgical History (Updated 03/05/25 @ 14:52 by Maribell Guthrie CNM) H/O liposuction of abdomen ?Z98.890 - Other specified postprocedural states (ICD-10) Encounter for IUD insertion (03/2023) ?Z30.430 - Encounter for insertion of intrauterine contraceptive device (ICD- 10) Hx of tympanostomy tubes (1998) ?Z98.890 - Other specified postprocedural states (ICD-10) History of appendectomy (2007) ?Z90.49 - Acquired absence of other specified parts of digestive tract (ICD- 10) History of tonsillectomy (2000) ?Z90.89 - Acquired absence of other organs (ICD-10) Family History (Updated 03/05/25 @ 14:53 by Maribell Guthrie CNM) Mother Bipolar disorder COPD (chronic obstructive pulmonary disease) Diabetes Myocardial infarction, Onset Age: 43 Stroke, Onset Age: 45 Sister Bipolar disorder Family history of drug addiction Preeclampsia Father CHF (congestive heart failure) COPD (chronic obstructive pulmonary disease) Diabetes Bipolar disorder Other Breast cancer Social History (Updated 02/12/25 @ 15:36 by Dina Lopez PA-C) Narrative: , 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 Lives in [place] 10 year-old son lives with her parents in [place]. Does not smoke cigarettes never did Does not exercise History of cocaine use resolved since 2014, history of alcohol use abuse resolved since 2014 What is your current living situation?: I presently have a place to live Problems where you live: no known problems In the past 12 months, utilities in danger of being shut off: no In past 12 months, lack of transportation kept you from medical appts, meetings, work, or getting things needed for daily living: no In the past 12 mos, have been you worried that your food would run out before you had money to buy more?: never true In the past 12 mos, the food you bought just didn't last and you didn't have money to buy more?: never true Smoking Status: Never smoker How often do you have a drink containing alcohol: never AUDIT-C Alcohol total score: 0 Non-prescribed substance use: denies use How often does anyone, including family, friends and others, physically hurt you : never How often does anyone, including family, friends and others, insult or talk down to you: never How often does anyone, including family, friends and others, threaten you with harm: never How often does anyone, including family, friends and others, scream or curse at you: never Exam Const: Vital Signs, click to edit/add: Vital Signs - 24 hr 04/09/25 15:12 04/09/25 15:57 Temperature 97.7 F Pulse Rate [Pulse Oximeter] 102 H Respiratory Rate 20 Blood Pressure [Ri ght Upper Arm] 150/93 H Pulse Oximetry 99 95 Oxygen Delivery Me thod Room Air This 25-year-old female is alert, interactive, no apparent distress. She is ambulatory into the ED of her own accord. Pupils equal round reactive, sclerae clear, extraocular muscles intact. Symmetrical facial function, anterior nares normal. TMs with normal translucency, there is maybe a little pinkish change on her right but it is still translucent. Oropharynx normal come speech normal. Neck is supple, no adenopathy or masses. Lungs are clear, good air entry, no wheezing or crackles, no tachypnea, no accessory muscle use. CV regular rate and rhythm, no murmur, normal S1-S2. Abdomen is obese but soft, no rebound or guarding, no organomegaly noted but could be confounded by patient's body habitus. She certainly does not have any tenderness. No pretibial pitting edema. Patient is not noted to have any rash or jaundice. Documenting provider has reviewed patient's vital signs: yes Course Reevaluation(s) Time of Reevaluation #1: 17:41 Reevaluation #1: Have done top tones, 160s. She states that has been the usual heart rate. She states her headache is resolving without any intervention. She has had no further symptoms. We will give her an 81 mg aspirin here she does not have any at home. She will need to get a follow-up with OB hopefully on Wednesday for recheck, do further workup and consideration of chronic hypertension of . Consultations Consultation #1: Spoke with on-call OB Dr. Espino. Reviewed the case with him. He would recommend starting this patient on 81 mg of aspirin as she is over 12 weeks an probably qualifies. She needs further evaluation in clinic to see if she is meeting criteria for chronic hypertension. Reviewed my plan workup. He agrees he would not proceed with head CT, chest CT imaging at this time. Will reconsider if there is any worsening or changes in her status. Time: 16:06 Vital Signs Vital signs: Initial Vital Signs Temperature 97.7 F 04/09/25 15:12 Temperature Source Temporal Artery Scan 04/09/25 15:12 Pulse Rate 102 H 04/09/25 15:12 Respiratory Rate 20 04/09/25 15:12 Blood Pressure 150/93 H 04/09/25 15:12 Blood Pressure Mean 112 H 04/09/25 15:12 Pulse Oximetry 99 04/09/25 15:12 Oxygen Delivery Method Room Air 04/09/25 15:12 Vital Signs Temperature 97.7 F 04/09/25 15:12 Pulse Rate 102 H 04/09/25 15:12 Respiratory Rate 20 04/09/25 15:12 Blood Pressure 150/93 H 04/09/25 15:12 Pulse Oximetry 99 04/09/25 15:12 Oxygen Delivery Method Room Air 04/09/25 15:12 Temperature 97.7 F 04/09/25 15:12 Pulse Rate 102 H 04/09/25 15:12 Respiratory Rate 20 04/09/25 15:12 Blood Pressure 150/93 H 04/09/25 15:12 Pulse Oximetry 95 04/09/25 15:57 Oxygen Delivery Method Room Air 04/09/25 15:12 MDM - OB/Uterine Contractions Lab Data Labs: Lab Results 04/09/25 04/09/25 04/09/25 Range/Units 15:59 16:17 16:28 WBC 8.81 (4.50-11.00) K/uL RBC 3.87 L (4.00-5.20) m/uL Hgb 11.4 L (12.0-16.0) gm/dL Hct 34.5 (33.0-51.0) % MCV 89 (80-100) fL MCH 30 (26-34) pg MCHC 33 (32-36) gm/dL RDW Coeff of [place] 12.5 (11.5-15.5) % Plt Count 185 (140-440) K/uL Neut % (Auto) 75.3 H (42.0-72.0) % Lymph % (Auto) 18.6 L (20-44) % [place] % (Auto) 5.9 (0.0-11.0) % Eos % (Auto) 0.0 (0.0-7.0) % Baso % (Auto) 0.0 (0.0-3.0) % Neut # (Auto) 6.60 (1.7-7.0) K/uL Lymph # (Auto) 1.60 (0.90-2.90) K/uL [place] # (Auto) 0.50 (0.00-0.90) K/UL Eos # (Auto) 0.00 (0.00-0.50) K/uL Baso # (Auto) 0.00 (0.00-0.30) K/uL Abs Immat Gran (auto) 0.02 (0.00-0.30) K/uL Imm/Tot Granulo (auto) 0.2 % Sodium 132 L (135-149) mmol/L Potassium 3.8 (3.6-5.1) mmol/L Chloride 101 (96-114) mmol/L Carbon Dioxide 24 (20-32) mmol/L Anion Gap 7 (7-15) mEq/L BUN 11 (5-24) mg/dL Creatinine 0.6 (0.5-1.5) mg/dL Estimated Creat Clear 126.73 Estimated GFR 126 ml/min Glucose 91 (60-115) mg/dL Calcium 9.0 (8.4-10.6) mg/dL Magnesium 1.7 (1.5-2.6) mg/dL Total Bilirubin 0.3 (0.1-1.5) mg/dL AST 18 (12-35) U/L ALT 14 (4-35) U/L Alkaline Phosphatase 67 (40-150) U/L POC Troponin I High Sensi < 2.9 L (2.9-13.0) pg/mL C-Reactive Protein 1.4 H (0.5-1.0) mg/dL NT-Pro-B Natriuret Pep < 20 (See Note) pg/mL Total Protein 7.4 (6.0-8.3) g/dL Albumin 4.1 (3.3-5.0) g/dL Urine Color Yellow (Yellow) Urine Appearance Clear (Clear) Urine pH 5.5 (5.0-8.5) Ur Specific [place] 1.025 (1.000-1.030) Urine Protein Negative (Negative) Urine Glucose (UA) Negative (Negative) Urine Ketones Negative (Negative) Urine Blood Negative (Negative) Urine Nitrite Negative (Negative) Urine Bilirubin Negative (Negative) Urine Urobilinogen 0.2 (0.2-1.0) Ur Leukocyte Esterase Trace A (Negative) Urine RBC 0-2 (0-2) Urine WBC 2-5 (0-5) Ur Squamous Epith Cells Moderate A (None-Few) Urine Bacteria Moderate A (None) ECG Data Attestation: I personally reviewed and interpreted this ECG as follows: (Normal sinus rhythm, no diagnostic ischemic change or infarct on my review of this EKG. Rate is 94 beats per minute.) ECG interpretation date: 04/09/25 ECG interpretation time: 16:13 Prior ECG tracings: not available for review Discharge Plan Discharge Clinical Impression: Elevated blood pressure affecting in second trimester, antepartum Patient Disposition: Home, Self-Care Condition: Stable Instructions: Hypertension During (ED) Additional Instructions: Start 81 mg aspirin daily, he were given a dose here in the ER today. Need to schedule an OB follow-up hopefully within 5 days, Wednesday would be perfect if you can get a recheck. Need to consider chronic hypertension of , they can evaluate you further. If you have further concerns or issues in the interim, please seek re-evaluation. Activity Level: Activity as Tolerated Prescriptions: No Action [id number]-[id number] 3 fatty no.1 27-1-300 mg capsule PO omeprazole 20 mg capsule,delayed release(DR/EC) 20 mg PO QDAY Qty: 90 0RF metoclopramide HCl [Reglan] 5 mg tablet 5 mg PO Q4-6H PRN (Reason: nausea/vomiting) Qty: 60 1RF Rx Instructions: May take 5-10 mg Follow Up/Referrals: Provider,Not a Local [Primary Care Provider, Family Practice] Stand Alone Forms: [employer] Info Instructions
[2025-04-09 15:57] VITALS: O2SAT 95
[2025-04-09 16:22] LABS: Appearance Urine Clear (Clear)
[2025-04-09 16:40] LABS: Hematocrit* 34.5 % (33.0-51.0); Hemoglobin* 11.4 gm/dL (12.0-16.0); Immature Granulocytes Abs Auto 0.02 K/uL (0.00-0.30); Immature Granulocytes Pct Auto 0.2 %; Mean Corpuscular HGB Conc 33 gm/dL (32-36); Mean Corpuscular Hemoglobin 30 pg (26-34); Mean Corpuscular Volume 89 fL (80-100); RDW Coefficient of Variation % 12.5 % (11.5-15.5); Red Blood Count* 3.87 m/uL (4.00-5.20); White Blood Count* 8.81 K/uL (4.50-11.00)
[2025-04-09 16:41] LABS: Lymphocytes Absolute Auto 1.60 K/uL (0.90-2.90); Slide Review Reflex No
[2025-04-09 16:56] LABS: Albumin* 4.1 g/dL (3.3-5.0); Chloride* 101 mmol/L (96-114); Potassium* 3.8 mmol/L (3.6-5.1); Sodium* 132 mmol/L (135-149)
[2025-04-09 16:58] LABS: Alanine Aminotransferase* 14 U/L (4-35); Aspartate Amino Transferase* 18 U/L (12-35); Blood Urea Nitrogen* 11 mg/dL (5-24); Creatinine* 0.6 mg/dL (0.5-1.5); Est. Creatinine Clearance* 126.73; Estimated Glomerular Filt Rate 126 ml/min
[2025-04-09 16:59] LABS: Alkaline Phosphatase* 67 U/L (40-150); Anion Gap 7 mEq/L (7-15); Bilirubin Total* 0.3 mg/dL (0.1-1.5); Calcium* 9.0 mg/dL (8.4-10.6); Carbon Dioxide* 24 mmol/L (20-32); Glucose* 91 mg/dL (60-115); Total Protein* 7.4 g/dL (6.0-8.3)
[2025-04-09 17:19] LABS: NT Pro B Type NatriureticPept* < 20 pg/mL (See Note)
[2025-04-09] MEDS: ASPIRIN 81 MG TAB.CHEW PO (17:55)
== END 2025-04-09 17:59 | disposition home or self-care (01) ==
PROVIDERS: Emergency Provider Family Medicine
DX: O16.2 Unspecified maternal hypertension, second trimester (principal)
CPT/HCPCS: 36415; 80053; 81001; 83735; 83880; 84484; 85025; 86140; 87086; 93005; 94761; 99284; A9270

== ENCOUNTER 2025-04-18 14:15 | Outpatient (CLI) | payer BC, SELFPAY ==
[2025-04-18 19:51] LABS: Bacterial Vaginosis* POSITIVE (Negative); Candida glab/krus NOT DETECTED (No Detected)
== END 2025-04-18 14:16 | disposition home or self-care (01) ==
LOC: NFLDREF 14:15
PROVIDERS: Visit Provider Advanced Practice Midwife
DX: N89.8 Other specified noninflammatory disorders of vagina (principal); R39.9 Unspecified symptoms and signs involving the genitourinary system
CPT/HCPCS: 81513; 87086; 87481; 87661